=== PATIENT | female | born 1950 | race Caucasian/White ===

== ENCOUNTER → 2017-02-02 | Outpatient (CLI) | payer OTHER, MEDICARE ==
[~2017-02-02] MED LIST: AMLO-110 PO; ASPI81TA28 PO; CALC500C70 PO; CARV25TA PO; GADAVIST IV PRN; HYDR25TA5 PO; LSN20 PO; MULT-506 PO; OMEG10007 PO; POTA-327 PO; SULF800T23 PO; dilaudid INT SPINAL
--- NOTE | 2017-02-02 16:25 | DIAGNOSTIC IMAGING REPORT ---
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 Patient has history of epidural pain pump catheter. COMPARISON: CT thoracic spine 09/11/2015, 08/03/2014 and 03/23/2014. TECHNIQUE: Multiplanar multisequence MRI of the thoracic spine was obtained both with and without the use of 8.5 mL Gadavist. FINDINGS: The large [id number] teacher advisor images demonstrate no gross abnormality. Focal areas of intermediate T1 and increased T2 signal without enhancement are again seen involving the T2 and T3 vertebral bodies extending into the left posterior elements at T3, unchanged dating back to 03/23/2014 suggesting vertebral body hemangiomas with similar appearing lesions seen at T5, T6, T11 and also at C6. The bone marrow signal is otherwise within normal limits. No fracture or marrow replacing process. Multilevel endplate spurring and facet arthropathy is noted throughout the lumbar spine without high-grade central canal or foraminal narrowing identified. Broad-based posterior disc bulge is seen at L1-L2, not imaged on the axial series appears to cause mild bilateral inferior foraminal narrowing. Conus medullaris terminates at the L1 level. There is a focal circumscribed ovoid structure with low T1 and low T2 signal and avid enhancement abutting the posterior epidural space at T9-T10, nicely seen on image 8 of the sagittal postcontrast T1 series measuring 6 x 7 x 8 mm in AP, transverse and craniocaudal dimensions, previously measuring 9 x 8 x 13 mm in AP, transverse and craniocaudal dimension. No additional abnormally enhancing lesions or masses are seen. This causes mild central canal stenosis. Signal within the cord is within normal limits. Micrometallic artifact is noted in the deep subcutaneous tissues at the T11-T12 level. The pain pump catheter is not seen on these images. T2 hyperintense lesions throughout the kidneys are nonspecific on this study, however suggest cysts. There is apparent nonspecific T2 hyperintense 1.3 cm lesion of the left thyroid. Indeterminate mildly T2 hypointense round circumscribed lesions within the expected region of the right psoas musculature on the coronal T2 series are seen measuring up to 2.6 cm in craniocaudal dimension nicely seen on image 8 of the coronal T2 series. There appears to be asymmetric right psoas atrophy. These findings are not imaged on the axial images. IMPRESSION: 1. Decreased size of enhancing T2 and T1 hypointense structure abutting the posterior epidural space at T9-T10 suggesting granuloma as seen on comparison studies. This measures up to 8 mm in greatest dimension and causes mild central canal narrowing. 2. No additional abnormally enhancing foci identified. 3. No high-grade central canal or foraminal narrowing identified. 4. Partially imaged nonspecific lobulated circumscribed foci within the retroperitoneal region near the right psoas musculature noted on the coronal images only. These findings can be further evaluated with CT. Moderate right psoas atrophy incidentally noted. 5. 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 The above report was generated using voice recognition software. It may contain grammatical, syntax or spelling errors. Electronically signed by: Franco Jack M.D. 02/02/2017 4:24 PM Dictated Date/Time: 02/02/2017 2:49 PM
== END | disposition home or self-care (01) ==
LOC: C.MRIBC 11:42
PROVIDERS: ATTEND Physician Assistant Medical
DX: Z96.89 Presence of other specified functional implants (principal)

== ENCOUNTER 2018-10-11 11:53 | Inpatient (IN) ==
--- NOTE | 2018-06-29 12:28 | PAT Medication Instructions ---
Medication Instructions Date of Service June 29, 2018 Home Medications amlodipine 5 mg tablet 5 mg PO QAM aspirin 81 mg tablet,delayed 81 mg PO QPM hydrochlorothiazide 25 mg tablet 25 mg PO QAM lisinopril 20 mg tablet 20 mg PO BID multivitamin capsule 1 cap PO QAM omega-3 fatty acids 1,000 mg 1,000 mg PO QAM psyllium husk 0.4 gram capsule 0.4 gm PO QAM atorvastatin 10 mg tablet 5 mg PO QPM Dilaudid 1 dose INTRATHECAL DAILY dorzolamide-timolol (PF) 1 drp OPHTHALMIC (EYE) BID Continue as directed Dilaudid 1 dose INTRATHECAL DAILY ASK your surgeon for instructions aspirin 81 mg tablet,delayed 81 mg PO QPM STOP taking 2 weeks before surgery omega-3 fatty acids 1,000 mg 1,000 mg PO QAM DO NOT take the morning of surgery hydrochlorothiazide 25 mg tablet 25 mg PO QAM lisinopril 20 mg tablet 20 mg PO BID multivitamin capsule 1 cap PO QAM psyllium husk 0.4 gram capsule 0.4 gm PO QAM Take morning of surgery With a small sip of water, OTHERWISE NOTHING TO EAT OR DRINK AFTER MIDNIGHT: amlodipine 5 mg tablet 5 mg PO QAM dorzolamide-timolol (PF) 1 drp OPHTHALMIC (EYE) BID Take evening before surgery atorvastatin 10 mg tablet 5 mg PO QPM dorzolamide-timolol (PF) 1 drp OPHTHALMIC (EYE) BID Other Notes If you have any questions please call us at [phone] or [phone] or [phone] or [phone]
--- NOTE | 2018-06-29 13:51 | PAT Medication Instructions ---
Medication Instructions Date of Service June 29, 2018 Other Notes Home Medications amlodipine 5 mg tablet5 mg PO QAM aspirin 81 mg tablet,[id number] mg PO QPM hydrochlorothiazide 25 mg [id number] mg PO QAM lisinopril 20 mg [id number] mg PO BID multivitamin capsule1 cap PO QAM omega-3 fatty acids 1,000 mg1,000 mg PO QAM psyllium husk 0.4 gram capsule.4 gm PO QAM atorvastatin 10 mg tablet5 mg PO QPM Dilaudid1 dose INTRATHECAL DAILY dorzolamide-timolol (PF)1 drp OPHTHALMIC (EYE) BID ASK your surgeon for instructions aspirin 81 mg tablet,delayed 81 mg PO QPM Dilaudid 1 dose INTRATHECAL DAILY STOP taking 2 weeks before surgery (or as soon as possible if surgery is within 2 weeks) omega-3 fatty acids 1,000 mg 1,000 mg PO QAM DO NOT take the morning of surgery hydrochlorothiazide 25 mg tablet 25 mg PO QAM lisinopril 20 mg tablet 20 mg PO BID multivitamin capsule 1 cap PO QAM psyllium husk 0.4 gram capsule 0.4 gm PO QAM Take morning of surgery With a small sip of water, OTHERWISE NOTHING TO EAT OR DRINK AFTER MIDNIGHT: amlodipine 5 mg tablet 5 mg PO QAM dorzolamide-timolol (PF) 1 drp OPHTHALMIC (EYE) BID Take evening before surgery atorvastatin 10 mg tablet 5 mg PO QPM dorzolamide-timolol (PF) 1 drp OPHTHALMIC (EYE) BID If you have any questions please call us at [phone] or [phone] or [phone] or [phone]
--- NOTE | 2018-06-29 14:00 | Anesthesiology Consultation ---
Date of Service June 29, 2018 Assessment & Plan (1) Encounter for pre-operative examination: Plan: - Awaiting response from PCP (Dr. Robertson) regarding hypokalemia on preop labs (06/29/18 K+: 3.1). Chart Review Chart Review: Patient seen in Pre Admission Testing Teaching & Discussion Pre-Anesthesia Teaching/Discussion Notes: Instructed NPO after midnight before surgery,except medications with 15 cc of water. Medication instructions provided according to the PAT guidelines. History Surgery Operation Date: 08/09/18 13:15 Proposed Procedures p Revision / Replacement of Intrathecal Catheter and Possible Replacement of Intrathecal Pain Pump - Arturo Jorge MD, FIPP Height/Weight Height: 5 ft 5 in Weight: 86.8 kg Allergies Allergy/AdvReac Type Severity Reaction Status Date / Time cephalexin AdvReac Unknown INCREASED Verified 06/29/18 13:56 BP Medications Home Medications Medication Instructions Recorded Confirmed Last Taken amlodipine 5 mg tablet 5 mg PO QAM 02/22/18 06/29/18 Unknown aspirin 81 mg tablet,delayed 81 mg PO QPM 02/22/18 06/29/18 Unknown release hydrochlorothiazide 25 mg tablet 25 mg PO QAM 02/22/18 06/29/18 Unknown lisinopril 20 mg tablet 20 mg PO BID tab 02/22/18 06/29/18 Unknown multivitamin capsule 1 cap PO QAM 02/22/18 06/29/18 Unknown omega-3 fatty acids 1,000 mg 1,000 mg PO QAM 02/22/18 06/29/18 Unknown capsule psyllium husk 0.4 gram capsule 0.4 gm PO QAM 04/06/18 06/29/18 Unknown atorvastatin 10 mg tablet 5 mg PO QPM tab 05/16/18 06/29/18 Unknown Dilaudid 1 dose INTRATHECAL DAILY 06/23/18 06/29/18 Unknown dorzolamide-timolol (PF) 1 drp OPHTHALMIC (EYE) BID 06/23/18 06/29/18 Unknown Past Medical History Medical History Degenerative disc disease Osteoarthritis Diverticular disease Glaucoma Deep vein thrombosis (Resolved) LE DVT 40+ YEARS AGO- AC X 1 MONTH; NO ISSUES SINCE Mitral valve prolapse NO RECENT ECHO; NO MURMUR NOTED ON PAT EXAM Dyslipidemia Hypertension Chronic interstitial cystitis Lumbar post-laminectomy syndrome Presence of intrathecal pump OR MADE AWARE Obesity Past Surgical History Surgical History S/P excision of lipoma History of colonoscopy History of hysterectomy History of cholecystectomy History of lumbar surgery x5 Status post insertion of intrathecal pump + INTRATHECAL PUMP REPLACEMENT= 09/17/15= LMA#4 AT [facility] Past Anesthesia History No Hx of Anesthesia Complications and No Family Hx of Anesthesia Complications History of PONV No Motion Sickness Screening History of Motion Sickness: No Social History Smoking Status: Never smoker Do You Dip or Chew Tobacco: No Hx Alcohol Use: No Hx Substance Use: No substance use type: does not use Exercise / Class Metabolic Activity III < 4 Walking/Shop/Light housework Review of Systems Patient denies chest pain, shortness of breath, reflux, cough, wheezing, palpitations. Physical Exam Vital Signs VITALS BP 116/78 P 65 TEMP 97.8 SP02 96%RA RESP 18 Full neck and c-spine range of motion. Full TMJ range of motion. TMD 2.5 finger breaths Mallampati Score 2 Dentition: chipped molars; missing sides/molars Lungs: clear throughout to auscultation Cardiac: regular rate and rhythm, no murmurs noted Spine: normal Carotid arteries: negative bruit Extremities: no edema Testing Electrocardiogram Date: 06/29/18 NSR at 67bpm. NS STA. Laboratory Results 06/29/18 14:09 06/29/18 14:09 Urine Color Yellow 06/29/18 Unknown Urine Appearance Clear (Clear) 06/29/18 Unknown Urine pH 5.5 (4.5-7.5) 06/29/18 Unknown Ur Specific Shannon 1.015 (1.000-1.030) 06/29/18 Unknown Urine Protein Negative (Negative) 06/29/18 Unknown Urine Glucose (UA) Negative (Negative) 06/29/18 Unknown Urine Ketones Negative (Negative) 06/29/18 Unknown Urine Nitrite Negative (Negative) 06/29/18 Unknown Ur Leukocyte Esterase Negative (Negative) 06/29/18 Unknown
[2018-06-29 14:55] LABS: Basophils # (auto) 0.01 K/uL (0-0.2); Basophils % (auto) 0.2 %; Eosinophils % (auto) 1.8 %; Hematocrit (blood only) 43.4 % (37-47); Hemoglobin 14.9 g/dL (12.0-16.0); Lymphocytes % (auto) 36.6 %; Mean Corpuscular Hgb Conc 34.3 g/dL (32-36); Mean Corpuscular Volume 94.6 fL (80-100); Monocytes # (auto) 0.46 K/uL (0.11-0.59); Monocytes % (auto) 8.4 %; Platelet Count 185 K/uL (130-400); RDW Coefficient of Variation 13.3 % (11.5-14.5); RDW Standard Deviation 45.8 fL (36.4-46.3); Red Blood Count 4.59 M/uL (4.2-5.4); White Blood Count 5.47 K/uL (4.8-10.8)
[2018-06-29 15:16] LABS: BUN Creatinine Ratio 21.1 (10-20); Calcium 9.3 mg/dl (8.5-10.1); Creatinine Clr Calc Pharmacy 71.3 ml/min; Est GFR (African American) 85.9; Est GFR (Non-African American) 74.1; Potassium 3.1 mmol/L (3.5-5.1)
[2018-06-29 15:17] LABS: Appearance Urine Clear (Clear); Bilirubin Urine Negative (Negative); Blood Urine Negative (Negative); Color Urine Yellow; Glucose Urine UA Negative (Negative); Ketones Urine Negative (Negative); Leukocyte Esterase Urine Negative (Negative); Nitrite Urine Negative (Negative); Protein Urine Negative (Negative); Specific Gravity Urine 1.015 (1.000-1.030); Urobilinogen Urine Negative (Negative); pH Urine 5.5 (4.5-7.5)
--- NOTE | 2018-08-23 13:05 | History & Physical Report ---
Date of Service August 23, 2018 Assessment & Plan (1) Presence of intrathecal pump: As the patient has been experiencing increased pain over the last several months in the hips, thoracic MRI was ordered to evaluate for potential growth of previous catheter tip granuloma. Granuloma was found to have resolved. A lumbar spine xray was ordered and the catheter tubing was found to be disconnected. The patient has been experiencing increased pain for the last several months and a disconnection of the catheter tubing would account for this. It is recommended that the patient pursue a revision of the intrathecal catheter. The LESIA of the pump is 46 months so we will not plan for replacement of the pump but will if warranted. Risks and benefits were reviewed with the patient in great detail. Patient would like to proceed with the procedure. She is scheduled for catheter revision and possible pump replacement on 09/06/18. (2) Lumbar post-laminectomy syndrome: History of Present Illness Chief Complaint: Chronic intractable low back pain secondary to post-laminectomy syndrome Primary Care Provider: Eleuterio Robertson Mrs. Velasquez is a 67 year old white female that is well known to the [facility] with a history of chronic lumbago secondary to lumbar post- laminectomy syndrome which has required the implantation of an intrathecal pump and catheter delivery system. She has received multiple lumbar surgeries since 1976. She is currently receiving intrathecal Dilaudid and Clonidine which has been adequately controlling her chronic back pain for many years. She was found to have a granuloma which did gradually resolve. Over the last several months she has been experiencing increasing hip pain that is causing moderate limitation into her daily activities. Pain is rated 1/10 at its best and 5/10 at its worst. She denies any saddle anesthesia, bowel/bladder incontinence, leg weakness, or falls. Allergies Allergy/AdvReac Type Severity Reaction Status Date / Time cephalexin AdvReac Unknown INCREASED Verified 08/10/18 10:57 BP Home Medications Home Medications Medication Instructions Recorded Confirmed Type amlodipine 5 mg tablet 5 mg PO QAM 02/22/18 06/29/18 History aspirin 81 mg tablet,delayed 81 mg PO QPM 02/22/18 06/29/18 History release hydrochlorothiazide 25 mg tablet 25 mg PO QAM 02/22/18 06/29/18 History lisinopril 20 mg tablet 20 mg PO BID tab 02/22/18 06/29/18 History multivitamin capsule 1 cap PO QAM 02/22/18 06/29/18 History omega-3 fatty acids 1,000 mg 1,000 mg PO QAM 02/22/18 06/29/18 History capsule psyllium husk 0.4 gram capsule 0.4 gm PO QAM 04/06/18 06/29/18 History atorvastatin 10 mg tablet 5 mg PO QPM tab 05/16/18 06/29/18 History Dilaudid 1 dose INTRATHECAL DAILY 06/23/18 06/29/18 History dorzolamide-timolol (PF) 1 drp OPHTHALMIC (EYE) BID 06/23/18 06/29/18 History potassium chloride ER 10 mEq 10 meq PO DAILY 08/10/18 08/10/18 History tablet,extended release potassium chloride 20 meq PO DAILY 08/16/18 08/16/18 History Past Med/Surg History Medical History Obesity (Chronic) Degenerative disc disease (Chronic) Osteoarthritis (Chronic) Diverticular disease (Chronic) Glaucoma (Chronic) Deep vein thrombosis (Chronic) LE DVT 40+ YEARS AGO- AC X 1 MONTH; NO ISSUES SINCE Mitral valve prolapse (Chronic) NO RECENT ECHO; NO MURMUR NOTED ON PAT EXAM ON 06/29/18 Dyslipidemia (Chronic) Hypertension (Chronic) Chronic interstitial cystitis (Chronic) Lumbar post-laminectomy syndrome (Chronic) Presence of intrathecal pump (Chronic) OR MADE AWARE Surgical History Status post insertion of intrathecal pump (Chronic) + INTRATHECAL PUMP REPLACEMENT= 09/17/15= LMA#4 AT [facility] S/P excision of lipoma (Resolved) History of colonoscopy (Chronic) History of hysterectomy (Chronic) History of cholecystectomy (Chronic) History of lumbar surgery (Chronic) x5 Social History Preferred Language: Swiss Communication Ability: Effective Visual Impairment: Limited Hearing Ability: Normal Beliefs That Will Affect Care: None marital status: marital status details: Has 2 adult children Current Living Situation: Spouse current occupational status: disabled current occupation: Previously employed by [employer] Other Information That Helps Us Care for You: No Feels Safe at Home: Yes Smoking Status: Never smoker Hx Alcohol Use: No Hx Substance Use: No Review of Systems Constitutional: no fever, no chills, no sweats, no body aches and no weakness Eyes: no eye pain and no photophobia Ear, Nose, Mouth, Throat: no ear pain, no nasal congestion, no facial pain, no sinus pain/pressure, no mouth lesions, no dental abscess, no sore throat and no dysphagia Respiratory: no cough, no chest congestion and no wheezing Cardiovascular: no chest pain, no radiating jaw, neck or arm pain, no palpitations and no lightheadedness Gastrointestinal: no abdominal pain, no nausea, no vomiting, no constipation and no diarrhea/loose stools Genitourinary (Female): no dysuria, no urinary frequency and no urinary incontinence Integumentary: no rash, no lesions, no skin ulcer and no sores Neurologic: no localized weakness, no generalized weakness, no loss of sensation, no lack of coordination, no confusion and no memory loss Psychiatric: no behavioral changes, no confusion and no hallucinations Physical Exam Vital Signs (Past 24 Hours): Per admission Physical Exam: GENERAL: Well nourished; well appearing; in no acute distress. Cognition intact and speech is appropriate. HEAD: Normocephalic; atraumatic. EYES: Pupils are round, equal, and reactive to light; EOM intact. ENT: No external ear discharge or lesions. No rhinorrhea or epistaxis. No mucosal lesions. NECK: Full ROM; trachea is midline; no TTP; no cervical lymphadenopathy. CARDIAC: No murmurs, rubs, or gallops noted. RRR. PULM: Clear to auscultation. No wheezes, rales, or rhonchi. CHEST: Regular chest respiration and excursion. ABDOMEN: Active bowel sounds throughout; non-tender to palpation. Pump is located in the RLQ. EXTREMITIES: Full ROM and 5/5 strength of bilateral lower extremities. No TTP. Distal sensation and pulses intact bilaterally. BACK: Complete loss of lumbar lordosis. Well healed surgical incision of the lumbar spine. There is non-focal tenderness to the lumbosacral region. Decreased ROM in all planes. No SI joint tenderness. NEURO: CN II-XII grossly intact with no focal deficits noted. AAO x 3. Normal gait. SKIN: No lesions, erythema, or rashes noted. Results & Data Diagnostic Findings XR lumbar spine min 4V RTN CLINICAL HISTORY: lumbago COMPARISON STUDY: 03/19/2014 FINDINGS: There is intrathecal catheter which appears to be disconnected.. There are surgical clips in the right pelvis and right paraspinal region. There are postsurgical changes of a lower lumbar spinal fusion. There are no acute fractures. There are no subluxations. No destructive lesions are evident. There are scattered nonspecific air-fluid levels with left abdominal small bowel loops at the upper limits of normal in diameter. IMPRESSION: 1. The patient's intrathecal catheter appears disconnected with retraction of the proximal tubing 2. Postsurgical changes in the lower lumbar spine 3. No acute fractures 4. Scattered abdominal air-fluid levels. Electronically signed by: Vincent Spence M.D. 04/06/2018 2:34 PM
--- NOTE | 2018-10-10 11:38 | History & Physical Report ---
Date of Service October 10, 2018 Assessment & Plan (1) Presence of intrathecal pump: As the patient has been experiencing increased pain over the last several months in the hips, thoracic MRI was ordered to evaluate for potential growth of previous catheter tip granuloma. Granuloma has resolved. A lumbar spine xray was ordered and the catheter tubing was found to be disconnected. The patient has been experiencing increased pain for the last several months and a disconnection of the catheter tubing would account for this. It is recommended that the patient pursue a revision of the intrathecal catheter. The LESIA of the pump is 46 months so we will not plan for replacement of the pump but will if warranted. Risks and benefits were reviewed with the patient in great detail. Patient would like to proceed with the procedure. She is scheduled for catheter revision and possible pump replacement on 10/11/18. (2) Lumbar post-laminectomy syndrome: History of Present Illness Primary Care Provider: Eleuterio Robertson Mrs. Velasquez is a 67 year old white female that is well known to the [facility] with a history of chronic lumbago secondary to lumbar post- laminectomy syndrome which has required the implantation of an intrathecal pump and catheter delivery system. She has received multiple lumbar surgeries since 1976. She is currently receiving intrathecal Dilaudid and Clonidine which has been adequately controlling her chronic back pain for many years. She was found to have a granuloma which did gradually resolve. Over the last several months she has been experiencing increasing hip pain that is causing moderate limitation into her daily activities. Pain is rated 1/10 at its best and 5/10 at its worst. She denies any saddle anesthesia, bowel/bladder incontinence, leg weakness, or falls. Allergies Allergy/AdvReac Type Severity Reaction Status Date / Time cephalexin AdvReac Unknown INCREASED Verified 10/06/18 11:33 BP Home Medications Home Medications Medication Instructions Recorded Confirmed Type amlodipine 5 mg tablet 5 mg PO QAM 02/22/18 10/06/18 History aspirin 81 mg tablet,delayed 81 mg PO QPM 02/22/18 10/06/18 History release hydrochlorothiazide 25 mg tablet 25 mg PO QAM 02/22/18 10/06/18 History lisinopril 20 mg tablet 20 mg PO BID tab 02/22/18 10/06/18 History multivitamin capsule 1 cap PO QAM 02/22/18 10/06/18 History omega-3 fatty acids 1,000 mg 1,000 mg PO QAM 02/22/18 10/06/18 History capsule psyllium husk 0.4 gram capsule 0.4 gm PO QAM 04/06/18 10/06/18 History atorvastatin 10 mg tablet 5 mg PO QPM tab 05/16/18 10/06/18 History Dilaudid 1 dose INTRATHECAL DAILY 06/23/18 10/06/18 History dorzolamide-timolol (PF) 1 drp OPHTHALMIC (EYE) BID 06/23/18 10/06/18 History potassium chloride 20 meq PO DAILY 08/16/18 10/06/18 History ascorbic acid (vitamin C) [Vitamin 500 mg PO DAILY 10/06/18 10/06/18 History C] Past Med/Surg History Medical History Obesity (Chronic) Degenerative disc disease (Chronic) Osteoarthritis (Chronic) Diverticular disease (Chronic) Glaucoma (Chronic) Deep vein thrombosis (Chronic) LE DVT 40+ YEARS AGO- AC X 1 MONTH; NO ISSUES SINCE Mitral valve prolapse (Chronic) NO RECENT ECHO; NO MURMUR NOTED ON PAT EXAM ON 06/29/18 Dyslipidemia (Chronic) Hypertension (Chronic) Chronic interstitial cystitis (Chronic) Lumbar post-laminectomy syndrome (Chronic) Presence of intrathecal pump (Chronic) OR MADE AWARE Fusion of spine X1 LUMBAR Surgical History Status post insertion of intrathecal pump (Chronic) + INTRATHECAL PUMP REPLACEMENT= 09/17/15= LMA#4 AT [facility] S/P excision of lipoma (Resolved) History of colonoscopy (Chronic) History of hysterectomy (Chronic) IVONNE History of cholecystectomy (Chronic) History of lumbar surgery (Chronic) MULTIPLE WITH REPAIR OF NERVE DAMAGE History of laminectomy X2 S/P BSO (bilateral salpingo-oophorectomy) S/P exploratory laparotomy BENIGN TUMOR IN THE ABDOMEN Social History Preferred Language: Estonian Communication Ability: Effective Visual Impairment: Limited Hearing Ability: Normal Beliefs That Will Affect Care: None marital status: marital status details: Has 2 adult children Current Living Situation: Spouse current occupational status: disabled current occupation: Previously employed by [employer] Feels Safe at Home: Yes Smoking Status: Never smoker Second Hand Exposure: No Hx Alcohol Use: No Hx Substance Use: No Review of Systems Constitutional: no fever, no chills, no sweats, no body aches and no weakness Eyes: no eye pain and no photophobia Ear, Nose, Mouth, Throat: no ear pain, no nasal congestion, no facial pain, no sinus pain/pressure, no mouth lesions, no dental abscess, no sore throat and no dysphagia Respiratory: no cough, no chest congestion and no wheezing Cardiovascular: no chest pain, no radiating jaw, neck or arm pain, no palpitations and no lightheadedness Gastrointestinal: no abdominal pain, no nausea, no vomiting, no constipation and no diarrhea/loose stools Genitourinary: no dysuria, no urinary frequency and no urinary incontinence Integumentary: no rash, no lesions, no skin ulcer and no sores Neurologic: no localized weakness, no generalized weakness, no loss of sensation, no lack of coordination, no confusion and no memory loss Psychiatric: no behavioral changes, no confusion and no hallucinations Physical Exam Physical Exam: GENERAL: Well nourished; well appearing; in no acute distress. Cognition intact and speech is appropriate. HEAD: Normocephalic; atraumatic. EYES: Pupils are round, equal, and reactive to light; EOM intact. ENT: No external ear discharge or lesions. No rhinorrhea or epistaxis. No mucosal lesions. NECK: Full ROM; trachea is midline; no TTP; no cervical lymphadenopathy. CARDIAC: No murmurs, rubs, or gallops noted. RRR. PULM: Clear to auscultation. No wheezes, rales, or rhonchi. CHEST: Regular chest respiration and excursion. ABDOMEN: Active bowel sounds throughout; non-tender to palpation. Pump is located in the RLQ. EXTREMITIES: Full ROM and 5/5 strength of bilateral lower extremities. No TTP. Distal sensation and pulses intact bilaterally. BACK: Complete loss of lumbar lordosis. Well healed surgical incision of the lumbar spine. There is non-focal tenderness to the lumbosacral region. Decreased ROM in all planes. No SI joint tenderness. NEURO: CN II-XII grossly intact with no focal deficits noted. AAO x 3. Normal gait. SKIN: No lesions, erythema, or rashes noted.
[~2018-10-11 11:53] MED LIST changes: -AMLO-110 PO; -ASPI81TA28 PO; -CALC500C70 PO; -CARV25TA PO; -GADAVIST IV PRN; -HYDR25TA5 PO; +LR 15ML/HR IV SCH; -LSN20 PO; -MULT-506 PO; -OMEG10007 PO; -POTA-327 PO; -SULF800T23 PO; +VANCOMYCIN HCL 1,000 MG in SODIUM CHLORIDE 0.9% 250 ML IV SCH; +VANCOMYCIN HCL 1,000 MG/270 ML BAG IV SCH; -dilaudid INT SPINAL
[2018-10-11] MEDS ORDERED: fentaNYL citrate 100 MCG/2 ML VIAL ONE ×3 (12:29→15:23)
[2018-10-11] MEDS ORDERED: MIDAZOLAM HCL 1 MG/ML 2ML VIAL ONE ×2 (12:29→13:02)
[2018-10-11] MEDS ORDERED: LIDOCAINE HCL 2% 2 ML VIAL/AMP(20MG/ML) INFIL ONE (12:30)
[2018-10-11] MEDS ORDERED: PROPOFOL IV EMULSION 10 MG/ML 20 ML VIAL IV ONE ×2 (12:30→15:28)
[2018-10-11] MEDS ORDERED: POVIDONE-IODINE OP SOLN 30 ML BTL ONE (12:35)
[2018-10-11] MEDS ORDERED: IOPAMIDOL INJ 61% 15 ML VIAL ONE (12:35)
[2018-10-11] MEDS ORDERED: LIDOCAINE/EPINE 2% 1:100,000 20ML ONE ×2 (12:35→14:46)
[2018-10-11 13:05] LABS: BUN Creatinine Ratio 24.7 (10-20); Creatinine Clr Calc Pharmacy 73.8 ml/min; Est GFR (African American) 89.9; Est GFR (Non-African American) 77.6; Potassium 3.5 mmol/L (3.5-5.1)
[2018-10-11] MEDS ORDERED: CLINDAMYCIN 600 MG/54 ML D5W IV ONE (13:12)
--- NOTE | 2018-10-11 13:12 | History & Physical Bridge Note ---
Date of Service October 11, 2018 History & Physical Bridge Note I have examined the patient, reviewed the History & Physical and in the interval since the performance of the History & Physical I have noted the following changes of clinical significance: no changes noted Patient accepts risks of infection, bleeding, damage to surrounding structures. She understands that she may require replacement of intrathecal pump vs simple repair of catheter or complete new catheter replacement. All questions answered and consent was signed.
[2018-10-11] MEDS ORDERED: CLINDAMYCIN 600 MG in DEXTROSE 5% 50 ML IV SCH (13:15)
[2018-10-11] MEDS ORDERED: ONDANSETRON INJ 2 MG/ML 2 ML VIAL IV PRN (14:51)
[2018-10-11] MEDS ORDERED: ATROPINE SULFATE 0.1 MG/ML 10ML SYR IV PRN (14:51)
[2018-10-11] MEDS ORDERED: PROMETHAZINE HCL 12.5 MG in SODIUM CHLORIDE 0.9% 50 ML IV PRN (14:51)
[2018-10-11] MEDS ORDERED: PHENYLEPHRINE 100MCG/ML 5ML SYR IV PRN (14:51)
[2018-10-11] MEDS ORDERED: ePHEDrine sulfate 50 MG/ML AMP IV PRN (14:51)
[2018-10-11] MEDS ORDERED: MAGNESIUM SULFATE / D5W 1 GM/100 ML BAG IV ONE (15:15)
[2018-10-11] MEDS ORDERED: ROCURONIUM BROMIDE 10 MG/ML 5 ML VIAL ONE (15:28)
[2018-10-11] MEDS ORDERED: GLYCOPYRROLATE 0.2 MG/ML VIAL ONE (15:28)
[2018-10-11] MEDS ORDERED: DEXAMETHASONE SOD INJ 4 MG/ML VIAL ONE (15:28)
[2018-10-11] MEDS ORDERED: ONDANSETRON INJ 2 MG/ML 2 ML VIAL ONE (15:28)
[2018-10-11] MEDS ORDERED: NEOSTIGMINE METHYLSULFATE 5 MG/5 ML SYR ONE (15:28)
--- NOTE | 2018-10-11 16:14 | Operative Report ---
Post Operative Report Pre & Post Diagnosis Operation Date: 10/11/18 13:15 Pre-Op Diagnosis: Lumbar Post Laminectomy Syndrome; Fractured Intrathecal catheter Post-Op Diagnosis: Lumbar Post Laminectomy Syndrome; Fractured Intrathecal catheter Procedure Operation Date: 10/11/18 13:15 Actual Procedures Revision/Replacement of Intrathecal Catheter, Catheter Access Port Interrogation and Analysis and reprogramming of intrathecal pump- Arturo Jorge MD, [employer] Surgeon Arturo Jorge MD, [employer] Fisheries Officer Dr. Jernigan Estimated Blood Loss 15 Findings Consistent with Post-Op Diagnosis Specimens Explanted intrathecal catheter Drains None Complications none Disposition Disposition: Recovery Room Description of Procedure INTRATHECAL CATHETER REVISION OPERATIVE REPORT PREOPERATIVE DIAGNOSIS: Nonfunctioning and migrated intrathecal catheter. POSTOPERATIVE DIAGNOSIS: Same. PROCEDURE: 1. Remove fractured intrathecal catheter. 2. Insertion of new catheter. 3. Revision of pump pocket. 4. Intraoperative refill and postoperative interrogation and reprogramming of intrathecal drug delivery system pump. INDICATIONS: Fractured intrathecal catheter COMPLICATIONS: None ANESTHESIA: General. DESCRIPTION OF PROCEDURE: The patient had an existing intrathecal pump with the catheter that had migrated in the epidural space. Patient was not achieving the efficacy from the intrathecal dose of the hydromorphone. Evaluation limited the catheter to be not in the thecal space. Prior to starting, the Patients diagnosis and the procedure were reviewed with the patient in detail. Possible risks and complications including infection, bleeding, damage to surrounding structures and increased pain were discussed. Alternative therapies were also reviewed. Patients questions were answered and they agreed to proceed. Informed consent was obtained. Allergies and medication list was reviewed. Biplanar fluoroscopy was used to assist in placement of the needle as well as to evaluate the final needle and catheter positions. The patient was brought to the operating room and general anesthesia was induced by members of the department. Patient was then placed in left lateral decubitus position. Immediately prior to starting the procedure, a ``time out was conducted with the staff where the patient was identified, proposed procedure was verified, consent was reviewed and the proper site for the planned procedure was identified. Preoperative antibiotic consisting of clindamycin 900 mg for prophylaxis was given given through the IV. On examination, no signs of skin breakdown or infection were noted at the injection site. The site was cleansed with DuraPrep followed by Betadine. Sterile drapes were applied in the usual fashion. Incision was made at the previous catheter insertion site. The existing catheter was located and anchor was disconnected and removed. Pump pocket site was open and the current pump in the remaining portion of the catheter were removed. Next, using biplanar fluoroscopy an 16-gauge Touhy needle was used to gain access to the intrathecal sac at L2/L3 interspace. Catheter was passed and after several attempts the catheter tip was placed at T8 position. CSF flow was noted. Clear free cerebral spinal fluid flow was noted without any blood. Stylet was removed. The intrathecal catheter was secured to the dorso-lumbar fascia with 2 purse string 0-0 silk ties. Entire catheter was used without any excess being removed. The anchoring device was used to anchor the catheter and was secured to the dorsal lumbar fascia with 0 silk sutures. Free CSF flow from the intrathecal catheter after anchoring of the catheter to the fascia. Using a tunneling device, the catheter was brought to the right flank and subsequently lower quadrant of the abdomen with using 2 technique. Wound was then irrigated with aqueous iodophor solution. Hemostasis was achieved. Deep layer was closed using 0 antibiotic- coated Strratfix suture and running 3-0 V lock suture for subcuticular layer. Both wounds were closed in same fashion. Prineo to the skin. 4 x 4 gauze and pressure dressing was applied to both sites. Abdominal binder was placed. Pump was then reprogrammed. No complications were noted throughout the procedure. The patient tolerated the procedure and general anesthesia without obvious complications.. Patient was allowed to emerge from anesthesia at the end of the procedure and transferred back to the stretcher. Patient was transported to the recovery room in stable condition. The patient will follow up with our clinic within 7 days for a wound check and then plan to have the destiney removed at day 14. Level of catheter: [] Catheter trimmed to: [] cm Medication placed in pump: [] [] mg/ml to run at [] mg/day I attest to the content of the Intraoperative Record and any orders documented therein. Any exceptions are noted below.
[2018-10-11] MEDS ORDERED: MAGNESIUM CITRATE 296 ML/BTL PO PRN (16:21)
[2018-10-11] MEDS ORDERED: NALOXONE HCL 0.4 MG/1 ML VIAL/CARP IV PRN (16:21)
[2018-10-11] MEDS ORDERED: NO NARCOTICS OR SEDATIVES SCH (16:30)
[2018-10-11] MEDS: fentaNYL citrate 100 MCG/2 ML VIAL IV PRN ×4 (16:40→16:55)
[2018-10-11] MEDS: HYDROmorphone INJ 1 MG/ML SYRINGE IV PRN ×6 (17:05→17:40)
--- NOTE | 2018-10-11 18:00 | Anesthesiology Progress Note ---
Date of Service October 11, 2018 Anesthesia Post Procedure Vital Signs Vital Signs: Temp Pulse Pulse Resp BP Pulse Ox 10/11/18 17:45 36.8 C 60 17 146/78 H 98 10/11/18 17:35 60 18 155/76 H 99 10/11/18 17:25 66 13 167/75 H 100 10/11/18 17:15 53 L 16 152/79 H 99 10/11/18 17:05 61 20 147/84 H 99 10/11/18 16:55 62 20 123/89 99 10/11/18 16:45 62 18 131/89 100 10/11/18 16:35 66 16 170/79 H 100 10/11/18 16:27 36.2 C L 69 16 137/76 98 10/11/18 12:36 36.7 C 59 L 18 159/88 H 100 Pain Intensity Medial Back: Pain Intensity: 2 Bilateral Leg: Pain Intensity: 5 Transfer of Care Handoff Completed per policy Notes Mental Status: alert / awake / arousable Patient Amnestic to Procedure: Yes Nausea / Vomiting: adequately controlled Pain: adequately controlled Airway Patency, RR, SpO2: stable & adequate BP & HR: stable & adequate Hydration State: stable & adequate Anesthetic Complications: no major complications apparent and Pt Satisfied with anesthetic care
[2018-10-11] MEDS: ONDANSETRON INJ 2 MG/ML 2 ML VIAL IV PRN (20:11)
--- NOTE | 2018-10-11 20:46 | Anesthesiology Progress Note ---
Date of Service October 11, 2018 I was called about this patient who was complaining of pain from behind her right knee radiating to her right foot, mostly the dorsum of her toes. The pain is constant and is exacerbated by movement of her foot. She also complains of pain in her left foot primarily the plantar surface, non-radiating. Both feet were sensitive to pressure and sharp touch. The strength of dorsiflexion and plantar flexion was 5/5 bilaterally. DTRs,3+ left knee and 0 right knee but I do not think she was relaxing her right leg. I discussed this with Dr. Jorge who asked that I write orders for neurontin 300 mg P.O. TID and allow her to have her hydrocodone which was already ordered. Assessment & Plan (1) Encounter for pre-operative examination: Physical Exam Vital Signs: Last Vital Signs Temp 36.8 C 10/11/18 18:25 Pulse 84 10/11/18 20:22 Resp 20 10/11/18 20:22 BP 134/77 10/11/18 20:22 Pulse Ox 96 10/11/18 20:22 Results & Data Medications Administered Lactated Ringer's (Lr) 1,000 mls @ 15 mls/hr IV .Q24H [facility] Stop: 10/12/18 05:59 Last Infusion: 10/11/18 18:29 Dose: 0 mls/hr Documented by: [id number] Admin: 10/11/18 12:58 Dose: 15 mls/hr Documented by: [id number] Ondansetron HCl (Zofran) 4 mg IV Q4H PRN PRN Reason: Nausea And Vomiting Stop: 11/10/18 16:20 Last Admin: 10/11/18 20:11 Dose: 4 mg Documented by: [id number]
[2018-10-11] MEDS: HYDROCODONE/ACETAMOPHEN 5/325MG TAB PO PRN (20:55)
[2018-10-11] MEDS ORDERED: ATORVASTATIN 10 MG TAB PO SCH (21:00)
[2018-10-11] MEDS ORDERED: ASPIRIN 81 MG ECTAB PO SCH (21:00)
[2018-10-11] MEDS: GABAPENTIN 300 MG CAP PO SCH (21:18)
[2018-10-11] MEDS: DOCUSATE SODIUM 100 MG CAP PO SCH (21:22)
[2018-10-11] MEDS: LISINOPRIL 20 MG TAB PO SCH (21:22)
[2018-10-12] MEDS: HYDROCODONE/ACETAMOPHEN 5/325MG TAB PO PRN (01:24)
[2018-10-12] MEDS: ONDANSETRON INJ 2 MG/ML 2 ML VIAL IV PRN (06:06)
--- NOTE | 2018-10-12 08:17 | Anesthesiology Progress Note ---
Date of Service October 12, 2018 Anesthesia Post Procedure Vital Signs Vital Signs: Temp Pulse Pulse Pulse Resp BP Pulse Ox 10/12/18 08:00 70 10/12/18 03:11 36.5 C 75 18 116/72 97 10/12/18 01:27 81 16 133/71 100 10/11/18 23:46 57 L 10/11/18 23:29 36.8 C 66 17 131/82 96 10/11/18 22:50 66 18 125/75 98 10/11/18 21:25 64 17 131/82 96 10/11/18 20:22 84 20 134/77 96 10/11/18 19:23 65 16 128/78 96 10/11/18 18:25 36.8 C 69 18 150/83 H 92 10/11/18 18:05 59 L 17 145/71 H 94 10/11/18 17:55 58 L 17 133/69 92 10/11/18 17:45 36.8 C 60 17 146/78 H 98 10/11/18 17:35 60 18 155/76 H 99 10/11/18 17:25 66 13 167/75 H 100 10/11/18 17:15 53 L 16 152/79 H 99 10/11/18 17:05 61 20 147/84 H 99 10/11/18 16:55 62 20 123/89 99 10/11/18 16:45 62 18 131/89 100 10/11/18 16:35 66 16 170/79 H 100 10/11/18 16:27 36.2 C L 69 16 137/76 98 10/11/18 12:36 36.7 C 59 L 18 159/88 H 100 Pain Intensity Medial Back: Pain Intensity: 5 Bilateral Leg: Pain Intensity: 5 Notes Mental Status: alert / awake / arousable and participated in evaluation Patient Amnestic to Procedure: Yes Nausea / Vomiting: adequately controlled Pain: adequately controlled and improving with treatment Airway Patency, RR, SpO2: stable & adequate BP & HR: stable & adequate Hydration State: stable & adequate Anesthetic Complications: no major complications apparent
[2018-10-12] MEDS: MULTIVITAMIN TAB PO SCH ×2 (08:28→08:45)
[2018-10-12] MEDS: hydroCHLOROthiazide 25 MG TAB PO SCH ×2 (08:28→08:45)
[2018-10-12] MEDS: LISINOPRIL 20 MG TAB PO SCH ×2 (08:28→08:46)
[2018-10-12] MEDS: POTASSIUM CHLORIDE 20 MEQ TABCR PO SCH ×2 (08:28→08:45)
[2018-10-12] MEDS: AMLODIPINE BESYLATE 5 MG TAB PO SCH ×2 (08:28→08:45)
[2018-10-12] MEDS: DOCUSATE SODIUM 100 MG CAP PO SCH ×2 (08:28→08:44)
[2018-10-12] MEDS: ASCORBIC ACID 500 MG TAB PO SCH ×2 (08:29→08:45)
[2018-10-12] MEDS: GABAPENTIN 300 MG CAP PO SCH ×2 (08:29→08:45)
[2018-10-12] MEDS: OMEGA-3 (PURIFIED FISH OIL) 1 GM CAP PO SCH ×2 (08:29→08:45)
[2018-10-12] MEDS ORDERED: DILAUDID IT SCH (09:00)
[2018-10-12] MEDS ORDERED: PSYLLIUM 58.6% POWDER PACKET PO SCH (09:00)
[2018-10-12] MEDS ORDERED: AMLODIPINE BESYLATE 5 MG TAB PO ONE (09:21)
[2018-10-12] MEDS ORDERED: hydroCHLOROthiazide 25 MG TAB PO STA (09:22)
[2018-10-12] MEDS ORDERED: LISINOPRIL 20 MG TAB PO STA (09:23)
--- NOTE | 2018-10-12 10:09 | Pain Management Progress Note ---
Date of Service October 12, 2018 Assessment & Plan (1) Status post insertion of intrathecal pump: * Status post removal of fractured catheter and reinsertion of intrathecal catheter and revision of pump. Postop day #1. * Neuropathic pain in the right lower extremity improving. * Patient be discharged home today with additional prescription for gabapentin 3 m p.o. 3 times daily and hydromorphone 1 mg p.o. every 6 hours as needed postoperative pain. [place] checked and no issues identified. * Follow-up with wound check in 1 week and [facility] scheduled. Present on Admission?: Yes Subjective She reports she was experiencing right foot pain, weakness dorsiflexion and dysesthesia yesterday after her intrathecal catheter replacement surgery. She was started on gabapentin and was given hydrocodone last night. This morning she reports the pain is improved significantly and that weakness is improved almost to the point of completely resolving this morning. She has been able to get out of bed and sit on the commode with minimal pain. She also is experiencing nausea and vomiting related to hydrocodone. Denies any side effects to the gabapentin. Denies any problems at the incision sites. She does not report any bowel or bladder incontinence, any progressive changes in neurological status or any other new complaints this morning. Physical Exam Physical Exam: She is awake, alert and oriented. Vital signs as noted. She is afebrile. Lungs are clear to auscultation. Inspection of the incision sites in the right lower quadrant and the lumbar spine demonstrates no fresh bleeding or drainage. Wounds are intact. No calf tenderness is noted. Neurological exam demonstrates full range of motion of the lower extremities without any obvious weakness including dorsiflexion of her right foot. Sensation is intact and symmetrical bilaterally without any deficits.
--- NOTE | 2018-11-02 09:41 | Discharge Summary ---
Date of Service 10/12/18 Admission HPI Per Admitting Provider Mrs. Velasquez is a 67 year old white female that is well known to the [facility] with a history of chronic lumbago secondary to lumbar post- laminectomy syndrome which has required the implantation of an intrathecal pump and catheter delivery system. She has received multiple lumbar surgeries since 1976. She is currently receiving intrathecal Dilaudid and Clonidine which has been adequately controlling her chronic back pain for many years. She was found to have a granuloma which did gradually resolve. Over the last several months she has been experiencing increasing hip pain that is causing moderate li mitation into her daily activities. Pain is rated 1/10 at its best and 5/10 at its worst. She denies any saddle anesthesia, bowel/bladder incontinence, leg weakness, or falls. Discharge Data Procedures Performed Operation Date: 10/11/18 13:15 Actual Procedures p Revision/Replacement of Intrathecal Catheter, Catheter Access Port Interrogation and Analysis(Not Applicable) - Arturo Jorge MD, [facility] Hospital Course (1) Status post insertion of intrathecal pump: * Status post removal of fractured catheter and reinsertion of intrathecal catheter and revision of pump. Postop day #1. * Neuropathic pain in the right lower extremity improving. * Patient be discharged home today with additional prescription for gabapentin 3 m p.o. 3 times daily and hydromorphone 1 mg p.o. every 6 hours as needed postoperative pain. [place] checked and no issues identified. * Follow-up with wound check in 1 week and [facility] scheduled. Discharge Instructions 1. Change dressings daily. Apply sterile, dry gauze and the wound site and apply tape over the dressing. 2. No showers for 3 days. May use washcloth. Can take shower after 3 days but do not route the towel over the sensation to dry. Generally dab the towel over the incision to dry. 3. Call [facility] pain clinic ([phone]) if he experienced any fevers, chills, drainage or signs of infection at the incision site. After hours, go to the emergency room. 4. Wear abdominal binder. 5. Do not lift more than 5 pounds or perform any repetitive bending, reaching overhead or twisting.
== END 2018-10-12 13:32 | disposition home or self-care (01) | DRG 30 ==
LOC: ASU 11:53 → 2S 18:23

== ENCOUNTER 2019-07-05 12:45 | Observation (INO) ==
--- NOTE | 2019-07-05 12:28 | History & Physical Report ---
Date of Service July 05, 2019 Assessment & Plan (1) Wound dehiscence: Intrathecal pump has pocket has dehisced. The superior aspect of the intrathecal pump and catheter delivery system is out of the skin. Patient will be taken to the operating room today for intrathecal pump and catheter delivery system explantation. Patient will receive a wound vac at the pump site to aid in healing. Surgical procedure has been explained to the patient and she is understanding. She will go straight [facility] for preadmission testing and admission. History of Present Illness Primary Care Provider: Eleuterio Robertson Mrs. Velasquez is a 68 year old white female that has been well known to the [facility] with a history of chronic lumbago secondary to lumbar postlaminectomy syndrome that has required the implantation of an intrathecal pump and catheter delivery system. She was found to have an intrathecal catheter fracture which was replaced on 10/11/2018. With a few dosage changes, she has been reporting adequate relief of pain. Pain is rated 3/10 at its best and 5/10 at its worst. At the last office visit on 04/05/19 there was some skin irritation and thinning along the superior aspect of the pump. She was advised to wear abdominal binder and not to wear jeans along the superior aspect of the pump. She has been wearing the abdominal binder. About 3 weeks ago she had started to notice yellow/clear drainage at the site. Patient has been applying Neosporin and a bandage daily. Allergies Allergy/AdvReac Type Severity Reaction Status Date / Time gabapentin Allergy Intermediate chest pain Verified 07/05/19 11:20 cephalexin AdvReac Unknown INCREASED Verified 04/05/19 10:53 BP Home Medications Home Medications Medication Instructions Recorded Confirmed Type amlodipine 5 mg tablet 5 mg PO QAM 02/22/18 04/05/19 History aspirin 81 mg tablet,delayed 81 mg PO QPM 02/22/18 04/05/19 History release hydrochlorothiazide 25 mg tablet 25 mg PO QAM 02/22/18 04/05/19 History lisinopril 20 mg tablet 20 mg PO BID tab 02/22/18 04/05/19 History multivitamin 1 cap PO QAM 02/22/18 04/05/19 History omega-3 fatty acids 1,000 mg 1,000 mg PO QAM 02/22/18 04/05/19 History capsule psyllium husk 0.4 gram capsule 0.4 gm PO QAM 04/06/18 04/05/19 History atorvastatin 10 mg tablet 5 mg PO QPM tab 05/16/18 04/05/19 History Dilaudid 1 dose INTRATHECAL DAILY 06/23/18 04/05/19 History dorzolamide-timolol (PF) 1 drp OPHTHALMIC (EYE) BID 06/23/18 04/05/19 History potassium chloride 20 meq PO DAILY 08/16/18 04/05/19 History ascorbic acid (vitamin C) [Vitamin 500 mg PO DAILY 10/06/18 04/05/19 History C] gabapentin 300 mg capsule 300 mg PO BID #60 cap 04/05/19 04/05/19 Rx Past Med/Surg History Medical History Chronic interstitial cystitis (Chronic) Deep vein thrombosis (Chronic) LE DVT 40+ YEARS AGO- AC X 1 MONTH; NO ISSUES SINCE Degenerative disc disease (Chronic) Diverticular disease (Chronic) Dyslipidemia (Chronic) Fusion of spine X1 LUMBAR Glaucoma (Chronic) Hypertension (Chronic) Lumbar post-laminectomy syndrome (Chronic) Mitral valve prolapse (Chronic) NO RECENT ECHO; NO MURMUR NOTED ON PAT EXAM ON 06/29/18 Obesity (Chronic) Osteoarthritis (Chronic) Presence of intrathecal pump (Chronic) OR MADE AWARE Wound dehiscence of intrathecal pump 07/05/19 Surgical History History of cholecystectomy (Chronic) History of colonoscopy (Chronic) History of hysterectomy (Chronic) IVONNE History of laminectomy X2 History of lumbar surgery (Chronic) MULTIPLE WITH REPAIR OF NERVE DAMAGE S/P BSO (bilateral salpingo-oophorectomy) S/P excision of lipoma (Resolved) S/P exploratory laparotomy BENIGN TUMOR IN THE ABDOMEN Status post insertion of intrathecal pump (Chronic) INTRATHECAL PUMP REPLACEMENT 09/17/15 Intrathecal catheter replacement 10/11/18 Social History Preferred Language: German Communication Ability: Effective Visual Impairment: Limited Hearing Ability: Normal 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 Physical Exam Physical Exam: GENERAL: 68 year old white female that appears her stated age. Speech and cognition is intact. Mood and affect is appropriate. In no acute distress. HEAD: Normocephalic; atraumatic. EYES: No conjunctival injection. EOM intact. ENT: No external ear discharge or lesions. No rhinorrhea or epistaxis. Moist oral mucosa. NECK: Full ROM; trachea is midline; no TTP; no cervical lymphadenopathy. CARDIO: Regular rate and rhythm. No murmurs, rubs, or gallops. PULM: Clear to auscultation. No wheezes, rales, or rhonchi. CHEST: Regular chest respiration and excursion. ABDOMEN: Active bowel sounds throughout; non-tender to palpation. The intrathecal pump is located in the right lower abdomen. The superior aspect of the pump is protruded through the skin by 2 cm. The catheter is visualized on the pump. EXTREMITIES: Using all extremities appropriately. BACK: Loss of lumbar lordosis. Well healed surgical incision. NEURO: CN II-XII grossly intact with no focal deficits noted. Normal gait. SKIN: No lesions, erythema, or rashes noted.
[~2019-07-05 12:45] MED LIST changes: +CEFAZOLIN 2000MG 2,000 MG/15 ML SYR IV SCH; -LR 15ML/HR IV SCH; -VANCOMYCIN HCL 1,000 MG in SODIUM CHLORIDE 0.9% 250 ML IV SCH; -VANCOMYCIN HCL 1,000 MG/270 ML BAG IV SCH
--- NOTE | 2019-07-05 13:26 | Anesthesiology Consultation ---
Date of Service July 05, 2019 Assessment & Plan (1) Encounter for pre-operative examination: Chart Review Chart Review: Acceptable Risk for Surgery (pending pre op testing) and Patient seen in Pre Admission Testing Consults Requested none ASA ASA3 Proposed Anesthesia Anesthesia Type: General Risk / Benefits Reviewed With: PT / POA / Parent / Guardian, Accepts Plan and Informed Consent Obtained History Surgery Operation Date: 07/05/19 07:00 Proposed Procedures p Removal of Drug Administration Intrathecal Pain Pump and Intrathecal Catheter - Arturo Jorge MD, FIPP Height/Weight Height: 5 ft 5 in Weight: 83.6 kg Allergies Allergy/AdvReac Type Severity Reaction Status Date / Time gabapentin Allergy Intermediate chest pain Verified 07/05/19 14:41 cephalexin AdvReac Intermediate INCREASED Verified 07/05/19 14:43 BP Medications Home Medications Medication Instructions Recorded Confirmed Last Taken amlodipine 5 mg tablet 5 mg PO QAM 02/22/18 07/05/19 07/05/19 06:00 aspirin 81 mg tablet,delayed 81 mg PO QPM 02/22/18 07/05/19 07/04/19 21:00 release hydrochlorothiazide 25 mg tablet 25 mg PO QAM 02/22/18 07/05/19 07/05/19 06:00 lisinopril 20 mg tablet 20 mg PO BID tab 02/22/18 07/05/19 07/05/19 06:00 multivitamin 1 cap PO QAM 02/22/18 07/05/19 07/04/19 08:00 omega-3 fatty acids 1,000 mg 1,000 mg PO QAM 02/22/18 07/05/19 07/04/19 08:00 capsule psyllium husk 0.4 gram capsule 0.4 gm PO QAM 04/06/18 07/05/19 07/04/19 08:00 atorvastatin 10 mg tablet 5 mg PO QPM tab 05/16/18 07/05/19 07/04/19 21:00 Dilaudid 1 dose INTRATHECAL DAILY 06/23/18 07/05/19 07/05/19 06:00 dorzolamide-timolol (PF) 1 drp OPHTHALMIC (EYE) BID 06/23/18 07/05/19 10/11/18 07:00 potassium chloride 10 meq PO DAILY 08/16/18 07/05/19 07/04/19 08:00 ascorbic acid (vitamin C) [Vitamin 500 mg PO DAILY 10/06/18 07/05/19 07/04/19 08:00 C] NPO Date Last Intake of Fluids: 07/05/19 Time Last Intake of Fluids: 06:30 Date Last Intake of Solids: 07/05/19 Time Last Intake of Solids: 06:30 Past Medical History Medical History Chronic interstitial cystitis (Chronic) Deep vein thrombosis (Chronic) LE DVT 40+ YEARS AGO- AC X 1 MONTH; NO ISSUES SINCE Degenerative disc disease (Chronic) Diverticular disease (Chronic) Dyslipidemia (Chronic) Fusion of spine X1 LUMBAR Glaucoma (Chronic) Hypertension (Chronic) Lumbar post-laminectomy syndrome (Chronic) Mitral valve prolapse (Chronic) NO RECENT ECHO; NO MURMUR NOTED ON PAT EXAM ON 07/05/19 Obesity (Chronic) Osteoarthritis (Chronic) Presence of intrathecal pump (Chronic) Wound dehiscence of intrathecal pump 07/05/19 Exercise / Class Metabolic Activity II 4-5 Yardwork/Stairs/Walk up hill (Denies CP or SOB with 1 FOS, walks dog daily) Past Family History Family History Mother FHx: pancreatic cancer Other No family history of adverse response to anesthesia Past Surgical History Surgical History History of appendectomy History of cholecystectomy (Chronic) History of colonoscopy (Chronic) History of hysterectomy (Chronic) IVONNE History of laminectomy X2 History of lumbar surgery (Chronic) MULTIPLE WITH REPAIR OF NERVE DAMAGE S/P BSO (bilateral salpingo-oophorectomy) S/P excision of lipoma (Resolved) S/P exploratory laparotomy BENIGN TUMOR IN THE ABDOMEN Status post insertion of intrathecal pump (Chronic) INTRATHECAL PUMP REPLACEMENT 09/17/15 Intrathecal catheter replacement 10/11/18 Past Anesthesia History No Hx of Anesthesia Complications (other than nausea) and No Family Hx of Anesthesia Complications History of PONV History of PONV (some nausea with previous surgery) and Hx of Motion Sickness Social History Smoking Status: Never smoker Do You Dip or Chew Tobacco: No Hx Alcohol Use: No Hx Substance Use: No substance use type: does not use Review of Systems Pt denies any recent chest pain, shortness of breath, palpitations, cough, fever or URI. +24hr stomach bug ~1 week ago Physical Exam Vital Signs Last Vital Signs Temp 36.7 C 07/05/19 14:21 Pulse 64 07/05/19 14:21 Resp 18 07/05/19 14:21 BP 166/85 H 07/05/19 14:21 Pulse Ox 98 07/05/19 14:21 ENMT Mouth: + chipped teeth (few chipped in rear); no dental restorations and no loose teeth Thyromental Distance: > or= 3.5 Finger Breadths (3.5) Mallampati Class: II Neck normal visual inspection; neck extension not limited Respiratory normal respiratory effort Auscultation: lungs clear to auscultation bilaterally Cardiovascular Rate/Rhythm: regular rate and regular rhythm Heart Sounds: no murmur Testing Laboratory Results 07/05/19 13:45 07/05/19 13:45 PT 10.1 Seconds (9.0-12.0) 07/05/19 13:45 INR 1.0 (0.9-1.1) 07/05/19 13:45 APTT 23.2 Seconds (21.0-31.0) 07/05/19 13:45 Urine Color Yellow 07/05/19 13:45 Urine Appearance Clear (Clear) 07/05/19 13:45 Urine pH 6.0 (4.5-7.5) 07/05/19 13:45 Ur Specific [place] 1.008 (1.000-1.030) 07/05/19 13:45 Urine Protein Negative (Negative) 07/05/19 13:45 Urine Glucose (UA) Negative (Negative) 07/05/19 13:45 Urine Ketones Negative (Negative) 07/05/19 13:45 Urine Nitrite Negative (Negative) 07/05/19 13:45 Ur Leukocyte Esterase Negative (Negative) 07/05/19 13:45 Electrocardiogram Date: 07/05/19 Findings: + SB @ (55bpm) Nonspecific T wave abnormality. *unconfirmed
[2019-07-05] MEDS ORDERED: VANCOMYCIN HCL 1,000 MG in SODIUM CHLORIDE 0.9% 250 ML IV SCH (14:15)
[2019-07-05] MEDS ORDERED: LR 15ML/HR IV SCH (14:30)
[2019-07-05] MEDS ORDERED: cefTRIAXone SODIUM 2,000 MG in DEXTROSE 5% 50 ML IV SCH (14:30)
[2019-07-05 14:40] LABS: Basophils # (auto) 0.01 K/uL (0-0.2); Basophils % (auto) 0.2 %; Eosinophils # (auto) 0.06 K/uL (0-0.5); Eosinophils % (auto) 1.1 %; Hematocrit (blood only) 44.1 % (37-47); Immature Granulocytes # (auto) 0.01 K/uL (0.00-0.02); Immature Granulocytes % (auto) 0.2 %; Lymphocytes # (auto) 1.47 K/uL (1.2-3.4); Lymphocytes % (auto) 26.2 %; Mean Corpuscular Hemoglobin 31.4 pg (25-34); Mean Corpuscular Volume 92.5 fL (80-100); Mean Platelet Volume 11.2 fL (7.4-10.4); Monocytes # (auto) 0.35 K/uL (0.11-0.59); Monocytes % (auto) 6.2 %; Neutrophils # (auto) 3.71 K/uL (1.4-6.5); Neutrophils % (auto) 66.1 %; Platelet Count 206 K/uL (130-400); RDW Coefficient of Variation 13.8 % (11.5-14.5); RDW Standard Deviation 46.6 fL (36.4-46.3); Red Blood Count 4.77 M/uL (4.2-5.4); White Blood Count 5.61 K/uL (4.8-10.8)
[2019-07-05 14:48] LABS: BUN Creatinine Ratio 17.1 (10-20); Calcium 10.1 mg/dl (8.5-10.1); Creatinine Clr Calc Pharmacy 60.1 ml/min; Est GFR (African American) 72.2; Est GFR (Non-African American) 62.3; Potassium 3.8 mmol/L (3.5-5.1)
[2019-07-05 14:51] LABS: Partial Thromboplastin Ratio 0.9; Partial Thromboplastin Time 23.2 Seconds (21.0-31.0); Prothrombin Time 10.1 Seconds (9.0-12.0)
--- NOTE | 2019-07-05 14:56 | Electrocardiogram Report ---
Test Reason : Blood Pressure : / mmHG Vent. Rate : 055 BPM Atrial Rate : 055 BPM P-R Int : 136 ms QRS Dur : 100 ms QT Int : 452 ms P-R-T Axes : 069 059 066 degrees QTc Int : 432 ms Sinus bradycardia Nonspecific ST and T wave abnormality Abnormal ECG When compared with ECG of 29-JUN-2018 14:05, Nonspecific T wave abnormality, worse in Anterolateral leads QT has shortened Confirmed by Ash Monroe ([id number]) on 07/05/2019 2:56:20 PM Referred By: Arturo Jorge Confirmed By:Ash Monroe
[2019-07-05] MEDS ORDERED: PROPOFOL IV EMULSION 10 MG/ML 20 ML VIAL IV ONE (15:00)
[2019-07-05] MEDS ORDERED: MIDAZOLAM HCL 1 MG/ML 2ML VIAL ONE (15:00)
[2019-07-05] MEDS ORDERED: LIDOCAINE HCL 2% 2 ML VIAL/AMP(20MG/ML) INFIL ONE (15:00)
[2019-07-05] MEDS ORDERED: fentaNYL citrate 100 MCG/2 ML VIAL ONE ×4 (15:00→18:31)
[2019-07-05] MEDS ORDERED: ONDANSETRON INJ 2 MG/ML 2 ML VIAL ONE (15:00)
[2019-07-05 15:01] LABS: Appearance Urine Clear (Clear); Bilirubin Urine Negative (Negative); Blood Urine Negative (Negative); Color Urine Yellow; Glucose Urine UA Negative (Negative); Ketones Urine Negative (Negative); Leukocyte Esterase Urine Negative (Negative); Nitrite Urine Negative (Negative); Protein Urine Negative (Negative); Specific Gravity Urine 1.008 (1.000-1.030); Urobilinogen Urine Negative (Negative)
[2019-07-05] MEDS ORDERED: ePHEDrine sulfate 50 MG/ML AMP IV PRN (15:47)
[2019-07-05] MEDS ORDERED: ATROPINE SULFATE 0.1 MG/ML 10ML SYR IV PRN (15:47)
[2019-07-05] MEDS ORDERED: BACITRACIN INJ 50,000 UNIT VIAL ONE (15:47)
[2019-07-05] MEDS ORDERED: fentaNYL citrate 100 MCG/2 ML VIAL IV PRN (15:47)
[2019-07-05] MEDS ORDERED: ONDANSETRON INJ 2 MG/ML 2 ML VIAL IV PRN (15:47)
[2019-07-05] MEDS ORDERED: IOPAMIDOL INJ 61% 15 ML VIAL ONE (16:04)
[2019-07-05] MEDS ORDERED: LIDOCAINE/EPINE 2% 1:100,000 20ML ONE (16:04)
[2019-07-05] MEDS ORDERED: BUPIVACAINE/EPINEPHRINE 0.5% MPF 1:200,000 10 ML VIAL ONE (16:39)
[2019-07-05] MEDS ORDERED: ePHEDrine sulfate 50 MG/ML SYR ONE (16:58)
[2019-07-05 17:38] LABS: Appearance CSF Clear; CSF Count Tube # 3; CSF Xanthrochromic No xanthochromia; Color CSF Colorless
[2019-07-05 17:40] LABS: Red Blood Cell CSF (A) 6 /uL (0-); White Blood Cell CSF (A) 0 /uL (0-5)
[2019-07-05 17:44] LABS: CSF Glucose 56 mg/dl (40-70); Total Protein CSF 32.1 mg/dl (15-45)
[2019-07-05 17:50] LABS: Lactate CSF 1.9 mmol/L (0.6-2.2)
[2019-07-05] MEDS ORDERED: ROCURONIUM BROMIDE 10 MG/ML 5 ML VIAL ONE (18:16)
[2019-07-05] MEDS ORDERED: NALOXONE HCL 0.4 MG/1 ML VIAL/CARP IV PRN (18:24)
[2019-07-05] MEDS ORDERED: MAGNESIUM CITRATE 296 ML/BTL PO PRN (18:24)
[2019-07-05 18:32] LABS: CSF Chemistry Tube # 1
[2019-07-05] MEDS ORDERED: MoRPHine SULFATE IR 15 MG TAB (IMMEDIATE RELEASE) PO PRN (18:35)
[2019-07-05] MEDS ORDERED: HYDROmorphone INJ 0.5 MG/0.5 ML SYR ONE (18:38)
[2019-07-05] MEDS ORDERED: VANCOMYCIN CONSULT ACTIVE PRN (18:42)
[2019-07-05] MEDS ORDERED: ACETAMINOPHEN 500 MG TAB PO PRN (18:45)
[2019-07-05] MEDS ORDERED: HYDROmorphone INJ 1 MG/ML SYRINGE ONE (18:50)
[2019-07-05] MEDS ORDERED: HYDROmorphone INJ 2 MG/ML SYR/VIAL IV PRN (18:52)
--- NOTE | 2019-07-05 19:25 | Operative Report ---
Post Operative Report Pre & Post Diagnosis Operation Date: 07/05/19 07:00 Pre-Op Diagnosis: Wound Deliscience of Intrathecal Pain Pump Post-Op Diagnosis: Wound Deliscience of Intrathecal Pain Pump I identified the patient and participated in the time-out.: Yes Procedure Operation Date: 07/05/19 07:00 Actual Procedures Explantation of of Drug Administration Intrathecal Pain Pump and Intrathecal Catheter and application of wound vac- Arturo Jorge MD, CONCEPCIÓN Surgeon Arturo Jorge MD, CONCEPCIÓN [employer] Director Lashonda Jernigan DO Estimated Blood Loss 20 Findings Consistent with Post-Op Diagnosis Wound dehiscence pump pocket site right lower quadrant. Specimens Superficial wound culture at the pump pocket site, deep culture pump pocket site, CSF cultures. Drains Wound VAC right lower quadrant abdominal wound. Anesthesia Type General Complications none Disposition Accompanied Patient To Recovery: No Disposition: Recovery Room Indications Wound dehiscence right lower quadrant pump pocket site Description of Procedure INTRATHECAL PUMP EXPLANTATION PROCEDURE PERFORMED: Intrathecal pump explantation. PREOPERATIVE DIAGNOSIS: Wound dehiscence pump pocket site right lower quadrant POSTOPERATIVE DIAGNOSIS: Same. COMPLICATIONS: None. SURGEON: Dr. Osorio Jorge. ANESTHESIA: General/endotracheal. MATERIAL FORWARDED TO THE LAB: Explanted pump. EBL: 25 ml INDICATIONS: Eulalio Velasquez is 68-year-old female with intrathecal drug delivery system implanted for chronic pain. She was seen for routine pump refill today at the office and was noted to have wound dehiscence at the upper pole of the pump pocket site in the right lower quadrant. She was advised to have the pump explanted due to concerns of pump being infected. The patient was explained the risks, benefits, alternatives of the procedure and agreed to proceed as above. Informed consent was obtained and witnessed. A time out was performed after the patient was brought into the Operating Room. Antibiotics consisting of Rocephin 2 g IV and vancomycin 1000 g were given after the CSF and wound cultures were taken. The patient was then induced with general anesthesia without complications and was placed in the supine. The skin was prepped with ChloraPrep and Betadine and draped in sterile fashion. The existing pump was identified and was noted to have wound dehiscence in in the upper edge of the pump pocket with catheter and pump exposed. Using a scalpel, electro cautery, and blunt dissection, the existing pump was fully exposed. The four retaining sutures were removed and the old pump was explanted. The catheter was located using fouroscopy and incision was made in the lumbar spine area and carried down to locate the catheter using electrocautery. Catheter was followed to the anchor and the retaining sutures were removed. Catheter was pulled out of the intrathecal space and found to be intact. Purse string sutures with 0-silk was taken in the supraspinous ligaments to minimize CSF leak in the future. No CSF leak was seen at this time. Both wounds were irrigated with Betadine containing normal saline. Both wounds were closed in similar fashion using continuous 0 strata fix lock suture for deeper layer and running 3-0 strata fix suture for subcuticular layer. Prineo to the skin. Silver Impregnated dressing was applied to both sites. Abdominal binder was placed. No complications were noted throughout the procedure. The patient was allowed to emerge from general anesthesia and transported to the recovery room in stable condition uneventfully. The patient will follow up at [facility] pain clinic within 7 days for a wound check and then plan to have the destiney removed at day 14. I attest to the content of the Intraoperative Record and any orders documented therein. Any exceptions are noted below.
--- NOTE | 2019-07-05 19:55 | Anesthesiology Progress Note ---
Date of Service July 05, 2019 Anesthesia Post Procedure Vital Signs Vital Signs: Temp Pulse Pulse Resp BP BP Pulse Ox 07/05/19 19:20 36.6 C 68 13 140/69 94 07/05/19 19:10 68 12 139/72 95 07/05/19 19:00 69 17 142/72 H 96 07/05/19 18:50 66 15 144/69 H 97 07/05/19 18:40 67 10 L 135/69 99 07/05/19 18:34 37.0 C 77 20 130/72 98 07/05/19 14:21 36.7 C 64 18 166/85 H 98 07/05/19 13:10 36.6 C 59 L 18 144/68 H 96 Pain Intensity Right Flank: Pain Intensity: 4 Transfer of Care Handoff Completed per policy Notes Mental Status: alert / awake / arousable and participated in evaluation Patient Amnestic to Procedure: Yes Nausea / Vomiting: adequately controlled Pain: adequately controlled Airway Patency, RR, SpO2: stable & adequate BP & HR: stable & adequate Hydration State: stable & adequate Anesthetic Complications: no major complications apparent and Pt Satisfied with anesthetic care
[2019-07-05] MEDS: LACTATED RINGER'S 1,000 ML IV SCH (20:42)
[2019-07-05] MEDS: MoRPHine SULFATE CR 15 MG TABCR PO SCH (20:42)
[2019-07-05] MEDS ORDERED: ATORVASTATIN 10 MG TAB PO SCH (21:00)
[2019-07-05] MEDS ORDERED: ASPIRIN 81 MG ECTAB PO SCH (21:00)
--- NOTE | 2019-07-05 21:14 | Pharmacy Report ---
Pharmacy Abx Initial Consult - Date of Service July 05, 2019 - Pharmacy Dosing Scope Date of Consult: 07/05/2019 Consultation requested by: Dr. Jorge Pharmacy is consulted to initiate Vancomycin IV dosing therapy, order appropriate labs and adjust drug dose/frequency. - Subjective The patient is a 68 year old F admitted on 07/05/19 18:25 for pain pump removal and treatment of wound dehiscence - Objective Height: 5 ft 5 in Weight: 87 kg Vital Signs (Past 12hrs): Vital Signs Temp Pulse Pulse Resp BP BP Pulse Ox 07/05/19 19:20 36.6 C 68 13 140/69 94 07/05/19 19:10 68 12 139/72 95 07/05/19 19:00 69 17 142/72 H 96 07/05/19 18:50 66 15 144/69 H 97 07/05/19 18:40 67 10 L 135/69 99 07/05/19 18:34 37.0 C 77 20 130/72 98 07/05/19 14:21 36.7 C 64 18 166/85 H 98 07/05/19 13:10 36.6 C 59 L 18 144/68 H 96 Lab Results (24hrs): Laboratory Tests (24 Hours) 07/05/19 07/05/19 13:45 13:45 WBC 5.61 Neut # (Auto) 3.71 Creatinine 0.93 Est Cr Clr Drug Dosing 60.1 Micro Results: 07/05/19 Unknown Gram Stain - Pending Abdomen, Right Lower Quadrant Aerobic and Anaerobic Culture - Pending 07/05/19 17:17 Gram Stain - Final Back,Lower Aerobic and Anaerobic Culture - Pending 07/05/19 17:01 Gram Stain - Final Cerebral Spinal Fluid CSF Culture - Pending 07/05/19 Unknown Gram Stain - Pending Abdomen, Right Lower Quadrant Aerobic and Anaerobic Culture - Pending 07/05/19 Unknown Gram Stain - Pending Abdomen, Right Lower Quadrant Aerobic and Anaerobic Culture - Pending 07/05/19 17:01 Fungal Culture - Pending Cerebral Spinal Fluid - Assessment & Plan Assessment 68 year old F with infected pain pump. s/p pump removal today and now ongoing treatment of wound area (skin and soft tissue infection). Patient receiving IV Vancomycin and Ceftriaxone 2gm IV daily Patient appears to be near baseline renal function Plan IV Vancomycin and IV Ceftriaxone for treatment of skin and soft tissue infection at the site of pain pump removal Vancomycin IV * Estimated PK Parameters: Vd 0.65 L/kg, Nabor 0.55 hr-1, t1/2 12.6 hr * Loading dose: 1000 mg (11 mg/kg) * Maintenance dose: 1250 mg IV (14.4 mg/kg) every 16 hours * Goal trough level for cellulitis: 13 to 17 mcg/mL * Trough level ordered for 07/07/2019 before the 1000 hrs dose * A less than traditional dose and/or extended dosing interval has/have been selected due to likelihood of drug accumulation in obese patient Pharmacy will continue to follow and will adjust dose/frequency as necessary. Thank you.
[2019-07-05] MEDS: DORZOLAMIDE/TIMOLOL 22.3/6.8MG/ML 10 ML BTL OP SCH (21:27)
[2019-07-05] MEDS: DOCUSATE SODIUM 100 MG CAP PO SCH (21:29)
[2019-07-05] MEDS: lisinopriL 20 MG TAB PO SCH (21:29)
--- NOTE | 2019-07-05 22:24 | Consultation ---
Date of Consultation July 05, 2019 Assessment & Plan (1) Status post insertion of intrathecal pump: No noted complications Follow CSF cultures Will be present to help with any acute issues overnight if needed (2) Hypertension: Vitals are WNL for age Continue to monitor hemodynamics No current concerns and okay to continue with current medical regimen of: Amlodipine 5mg PO HCTZ 25mg PO Lisinopril 20mg PO (3) Dyslipidemia: c/w Atorvastatin 10mg PO c/w [place] 3 supplement Supervising Physician Co-Signing Physician Notes Attending addendum: I have physically seen this patient, have supervised the medical residents activities, and agree with the H&P unless as otherwise noted. Assessment and Plan: Status post removal of intrathecal pump and intrathecal portion of catheter- Medically stable post procedure Continue ceftriaxone IV as ordered. Follow culture and sensitivities. Hypertension- Continue amlodipine, HCTZ and lisinopril with hold parameters. Remainder orders and notations as noted. History of Present Illness Requesting Physician: Arturo Jorge MD, FIPP Reason for Consultation: Medical Management Attending Physician: Arturo Jorge MD, FIPP History of Present Illness Eulalio Velasquez is a 68-year-old female with past medical history of chronic pain, HTN, DVT, DDD, OA, HLD, who had intrathecal explantation of drug delivery system with a dehiscence of the pump pocket site because of high likelihood of infection at the site. She elected to undergo removal of the pump and the intrathecal portion of the catheter. We were consulted for medical management. She received Rocephin 2 g IV and vancomycin 1000 g after the CSF and wound cultures were taken. Currently, she is resting with comfort, no current new acute complaints, no fevers/chills, chest pain, shortness of breath. Allergies Allergy/AdvReac Type Severity Reaction Status Date / Time gabapentin Allergy Intermediate chest pain Verified 07/05/19 14:41 cephalexin AdvReac Intermediate INCREASED Verified 07/05/19 14:43 BP Home Medications Home Medications Medication Instructions Recorded Confirmed Type amlodipine 5 mg tablet 5 mg PO QAM 02/22/18 07/05/19 History aspirin 81 mg tablet,delayed 81 mg PO QPM 02/22/18 07/05/19 History release hydrochlorothiazide 25 mg tablet 25 mg PO QAM 02/22/18 07/05/19 History lisinopril 20 mg tablet 20 mg PO BID tab 02/22/18 07/05/19 History multivitamin 1 cap PO QAM 02/22/18 07/05/19 History omega-3 fatty acids 1,000 mg 1,000 mg PO QAM 02/22/18 07/05/19 History capsule psyllium husk 0.4 gram capsule 0.4 gm PO QAM 04/06/18 07/05/19 History atorvastatin 10 mg tablet 5 mg PO QPM tab 05/16/18 07/05/19 History dorzolamide-timolol (PF) 1 drp OPHTHALMIC (EYE) BID 06/23/18 07/05/19 History potassium chloride 10 meq PO DAILY 08/16/18 07/05/19 History ascorbic acid (vitamin C) [Vitamin 500 mg PO DAILY 10/06/18 07/05/19 History C] cephalexin [Keflex] 500 mg PO BID 10 Days #20 cap 07/06/19 Rx morphine 15 mg PO Q4H PRN #60 tab NS 07/06/19 Rx morphine 30 mg PO Q12H #120 tab 07/06/19 Rx naloxone [Narcan] 1 sprays INTNAS Q2M PRN #2 ea 07/06/19 Rx Patient History Medical History Chronic interstitial cystitis (Chronic) Deep vein thrombosis (Chronic) LE DVT 40+ YEARS AGO- AC X 1 MONTH; NO ISSUES SINCE Degenerative disc disease (Chronic) Diverticular disease (Chronic) Dyslipidemia (Chronic) Fusion of spine X1 LUMBAR Glaucoma (Chronic) Hypertension (Chronic) Lumbar post-laminectomy syndrome (Chronic) Mitral valve prolapse (Chronic) NO RECENT ECHO; NO MURMUR NOTED ON PAT EXAM ON 07/05/19 Obesity (Chronic) Osteoarthritis (Chronic) Presence of intrathecal pump (Chronic) Wound dehiscence of intrathecal pump 07/05/19 Surgical History History of appendectomy History of cholecystectomy (Chronic) History of colonoscopy (Chronic) History of hysterectomy (Chronic) IVONNE History of laminectomy X2 History of lumbar surgery (Chronic) MULTIPLE WITH REPAIR OF NERVE DAMAGE S/P BSO (bilateral salpingo-oophorectomy) S/P excision of lipoma (Resolved) S/P exploratory laparotomy BENIGN TUMOR IN THE ABDOMEN Status post insertion of intrathecal pump (Chronic) INTRATHECAL PUMP REPLACEMENT 09/17/15 Intrathecal catheter replacement 10/11/18 Family History Mother FHx: pancreatic cancer Other No family history of adverse response to anesthesia Social History Preferred Language: Qatari Communication Ability: Effective Visual Impairment: Limited Hearing Ability: Normal Court Collections Officer Required: No Beliefs That Will Affect Care: None marital status: marital status details: Has 2 adult children Current Living Situation: Spouse current occupational status: disabled current occupation: Previously employed by [employer] Feels Safe at Home: Yes Smoking Status: Never smoker Second Hand Exposure: No ; Hx Alcohol Use: No Hx Substance Use: No Review of Systems Review of Systems: All systems reviewed & are unremarkable except as noted in HPI & below Constitutional: no fever and no chills Eyes: no diplopia and no worsening vision Ear, Nose, Mouth, Throat: no nasal congestion and no sore throat Respiratory: no cough and no dyspnea Cardiovascular: no chest pain and no chest pain at rest Gastrointestinal: no nausea and no vomiting Neurologic: no syncope and no confusion Physical Exam Constitutional: WD/WN, vitals as above comfortable Neck: normal visual inspection and trachea midline Respiratory: normal respiratory effort; no respiratory distress and does not use accessory muscles Cardiovascular: Rate/Rhythm: regular rhythm and + bradycardic (58 on laboratory monitor) Musculoskeletal: Head/Neck/Chest: normocephalic and head atraumatic Skin: no rashes, warm and dry Neurologic: moves all extremities Results & Data Vital Signs (Past 12 Hours) Vital Signs Temp Pulse Pulse Resp BP BP Pulse Ox 07/05/19 19:20 36.6 C 68 13 140/69 94 07/05/19 19:10 68 12 139/72 95 07/05/19 19:00 69 17 142/72 H 96 07/05/19 18:50 66 15 144/69 H 97 07/05/19 18:40 67 10 L 135/69 99 07/05/19 18:34 37.0 C 77 20 130/72 98 07/05/19 14:21 36.7 C 64 18 166/85 H 98 07/05/19 13:10 36.6 C 59 L 18 144/68 H 96 PG Care Time/CCT Total # of Minutes Spent Total Time Spent with Patient: Total time spent is greater than 50% in coordination of care (as documented) at patient's floor/unit and/or counseling patient: Coding Level of Care Code 50072 OBS Care - Level 2 Diagnoses Status post insertion of intrathecal pump Z98.890 Hypertension I10 Dyslipidemia E78.5 Resident Activity Tracking Resident Involvement: Resident Care Provided Care Provided: Adult Hospital Medicine
[2019-07-06] MEDS ORDERED: VANCOMYCIN HCL 1,250 MG in SODIUM CHLORIDE 0.9% 250 ML IV SCH (02:00)
[2019-07-06] MEDS ORDERED: MoRPHine SULFATE IR 15 MG TAB (IMMEDIATE RELEASE) PO ONE (03:20)
[2019-07-06] MEDS: MoRPHine SULFATE CR 15 MG TABCR PO SCH (06:47)
--- NOTE | 2019-07-06 08:30 | Anesthesiology Progress Note ---
Date of Service July 06, 2019 Anesthesia Post Procedure Vital Signs Vital Signs: Temp Pulse Pulse Pulse Resp BP BP 07/06/19 07:41 36.7 C 58 L 18 121/61 07/06/19 03:53 36.6 C 60 18 135/75 07/06/19 01:33 52 L 07/05/19 23:04 36.9 C 56 L 18 150/77 H 07/05/19 19:20 36.6 C 68 13 140/69 07/05/19 19:10 68 12 139/72 07/05/19 19:00 69 17 142/72 H 07/05/19 18:50 66 15 144/69 H 07/05/19 18:40 67 10 L 135/69 07/05/19 18:34 37.0 C 77 20 130/72 07/05/19 14:21 36.7 C 64 18 166/85 H 07/05/19 13:10 36.6 C 59 L 18 144/68 H Pulse Ox 07/06/19 07:41 95 07/06/19 03:53 93 07/06/19 01:33 07/05/19 23:04 98 07/05/19 19:20 94 07/05/19 19:10 95 07/05/19 19:00 96 07/05/19 18:50 97 07/05/19 18:40 99 07/05/19 18:34 98 07/05/19 14:21 98 07/05/19 13:10 96 Pain Intensity Right Flank: Pain Intensity: 4 Back: Pain Intensity: 6 Notes Mental Status: alert / awake / arousable and participated in evaluation Patient Amnestic to Procedure: Yes Nausea / Vomiting: adequately controlled Pain: adequately controlled Airway Patency, RR, SpO2: stable & adequate BP & HR: stable & adequate Hydration State: stable & adequate Anesthetic Complications: no major complications apparent and Pt Satisfied with anesthetic care
[2019-07-06] MEDS: DORZOLAMIDE/TIMOLOL 22.3/6.8MG/ML 10 ML BTL OP SCH (08:33)
[2019-07-06] MEDS: DOCUSATE SODIUM 100 MG CAP PO SCH (08:33)
[2019-07-06] MEDS: lisinopriL 20 MG TAB PO SCH (08:34)
[2019-07-06] MEDS: MoRPHine SULFATE IR 15 MG TAB (IMMEDIATE RELEASE) PO PRN ×3 (08:44→16:51)
[2019-07-06] MEDS: LACTATED RINGER'S 1,000 ML IV SCH (08:45)
--- NOTE | 2019-07-06 08:58 | Pain Management Progress Note ---
Date of Service July 06, 2019 Assessment & Plan (1) Wound dehiscence: Present on Admission?: Yes (2) Lumbar post-laminectomy syndrome: 1. Patient had dehiscence of the upper aspect of her intrathecal pump pocket in the right lower quadrant upon presentation to our office-the pump was explanted on 07/05/2019 with no obvious evidence of infection near the pump site. The catheter was also completely removed. The patient provided further history of a fall at home approximately 1 week prior to noticing the upper aspect of her wound breaking down. She reports no prior history of metal allergy. We will need to consider metal allergy testing in the outpatient setting. 2. Wound VAC will remain in place at this time. Awaiting evaluation by wound care to determine discharge planning. 3. Antibiotics will remain in place pending outcome of cultures 4. Will increase MS Contin to 30 mg every 12 hours 5. Will adjust MSIR from every 6H to every 4H Present on Admission?: Yes Subjective Mrs. Velasquez is a 68-year-old white female who is well-known to the pain service due to her history of chronic intractable low back pain secondary to lumbar postlaminectomy syndrome who had the upper part of her intrathecal pump break through the skin with concern for wound dehiscence. This was identified upon her follow-up visit in our office yesterday for routine refill of her intrathecal pump. She today reported that she suffered a fall at home approximately 1 week prior to her noticing the intrathecal pump coming through the skin. She believes there is a direct correlation between the fall and the opening in the skin. During removal of the pump in the operating setting there is no evidence of pus within the pump pocket site and initial Gram stain has been negative of the CSF and pump pocket. The patient remains on IV antibiotic therapy at this time. Wound VAC remains in place and wound care has been consulted. Patient reports some discomfort in her axial lumbar region overnight which is her typical pain which is been slightly increased in severity. She reports use of MSIR has been effective at diminishing her pain. She reports some frequent urination throughout the night and reports similar experience in the past with opioid withdrawal. She is not experiencing diarrhea, anxiety or shaking at this time. She does report some dry mouth. She denies any chills throughout the night or excessive sweating. Patient reports no prior history of known metal allergy although reports an occasional itching of her ear with "cheap jewelry". Patient denies radicular component to pain. She reports her pain is a 4-6/10. She denies all other constitutional complaints at this time. Patient denies any positional headache. Plan of care discussed with Dr. Lashonda Jernigan. Physical Exam Physical Exam: General: Patient lying quietly upon and the room in no acute distress. Patient was sleeping and was awakened. Speech and thought process appropriate. Mood and affect appropriate. Cognition intact. Abdomen: Wound VAC in place in the right lower quadrant at site of pump explantation. Patient is moderately tender over the explant site to palpation. There is minimal evidence of discharge present in the wound VAC. Back/spine: Aquacel dressing was intact and in place. The Aquasol dressing was lifted for visual inspection. Scant discharge from the incisional site over the midline of the thoracolumbar spine. Nontender to palpation. Minimally tender to palpation. Neurologic: Cranial nerves grossly intact. Ambulatory function not witnessed. Supervising Physician Co-Signing Physician Notes The patient did not have dehiscence of her prior incision site for intrathecal catheter replacement last September 2018. She had previous thinning of the skin at the superior margin 12 o'clock position of the intrathecal pump and it appears that after her fall while walking her dog she had rupture of the pump through her prior region of thinning skin. No evidence of infection is noted after review of cultures either in the CSF or wound site. Rare gram-positive cocci are likely a skin contaminant. Plan to convert to oral Keflex until cultures are negative. Do not see the need for IV antibiotics after discharge. In regards to her wound VAC pump, will defer to wound clinic management. She would be a candidate for replacement of intrathecal pump if she is unable to be controlled on oral opiates in the future, but only after allergy testing has been performed. Recommend utilization of MS Contin 30 mg p.o. every 12 with MSIR 15mg every 4 hours for pain control at this time. Will plan for discharge after wound clinic evaluation and coordination of care for outpatient wound management. Patient updated.
[2019-07-06] MEDS ORDERED: AMLODIPINE BESYLATE 5 MG TAB PO SCH (09:00)
[2019-07-06] MEDS ORDERED: PSYLLIUM 58.6% POWDER PACKET PO SCH (09:00)
[2019-07-06] MEDS ORDERED: POTASSIUM CHLORIDE 10 MEQ TABCR PO SCH (09:00)
[2019-07-06] MEDS ORDERED: OMEGA-3 (PURIFIED FISH OIL) 1 GM CAP PO SCH (09:00)
[2019-07-06] MEDS ORDERED: MULTIVITAMIN TAB PO SCH (09:00)
[2019-07-06] MEDS ORDERED: ASCORBIC ACID 500 MG TAB PO SCH (09:00)
[2019-07-06] MEDS ORDERED: hydroCHLOROthiazide 25 MG TAB PO SCH (09:00)
[2019-07-06 10:02] LABS: Creatinine Clr Calc Pharmacy 77.3 ml/min; Est GFR (African American) 98.3; Est GFR (Non-African American) 84.9
--- NOTE | 2019-07-06 13:09 | Hospitalist Progress Note ---
Date of Service July 06, 2019 Assessment & Plan (1) Wound dehiscence: S/p explantation of intrathecal pump on 07/05/[address] Al. - Presently on ceftriaxone & vancomycin for good Strep/Staph coverage. - Follow CSF and blood cultures from 07/05 - If discharged and desire continued abx coverage, could consider Keflex/Bactrim as a good Strep/Staph (including MRSA) coverage. - Pain management per primary team (2) Hypertension: BP presently 140/75. Overall acceptable range for inpatient. - Continue amlodipine, HCTZ, lisinopril (3) Dyslipidemia: - Continue statin & omega-3 (4) Glaucoma: - Continue home eye drops (5) DVT prophylaxis: SCDs - Will not add heparin given recent surgery; defer to primary team Subjective Doing really well overall. No major pain in the back at present. Reports no fevers/chills, chest pain, shortness of breath, abdominal pain, nausea, or vomiting. Physical Exam Constitutional: WD/WN, vitals as above Eyes: EOM intact bilaterally; no conjunctival abnormality ENMT: external ear and nose normal, oropharynx normal Neck: trachea midline, no thyromegaly normal visual inspection Respiratory: normal respiratory effort, lungs clear to auscultation no respiratory distress Cardiovascular: RRR, no murmur, no edema Gastrointestinal (Abdomen): Inspection/Auscultation: abdomen normal to inspection; abdomen not distended Musculoskeletal: no cyanosis or clubbing, extremities motor strength 5/5 Back is bandaged with wound vac present. Skin: no rashes, warm and dry Neurologic: moves all extremities and awake Psychiatric: Orientation: alert, oriented to person and cooperative Results & Data ([facility]) Vital Signs (Past 12 Hours) Vital Signs Temp Pulse Pulse Resp BP Pulse Ox 07/06/19 11:14 36.8 C 51 L 18 143/74 H 95 07/06/19 07:41 36.7 C 58 L 18 121/61 95 07/06/19 03:53 36.6 C 60 18 135/75 93 07/06/19 01:33 52 L PG Care Time/CCT Total # of Minutes Spent Total Time Spent with Patient: Total time spent is greater than 50% in coordination of care (as documented) at patient's floor/unit and/or counseling patient: Coding Level of Care Code 54564 Subseq Hosp Care Lvl 2 Diagnoses Wound dehiscence T81.30XA Hypertension I10 Dyslipidemia E78.5 Glaucoma H40.9 DVT prophylaxis Z29.9
--- NOTE | 2019-07-06 13:37 | Wound Consultation ---
Date of Consultation July 06, 2019 Assessment & Plan (1) Wound dehiscence: Patient status post explantation of intrathecal pain pump 07/05/2019. Cultures are pending but, are negative so far. Wound VAC will be changed today. Will have home health change consultant the weekend will see patient in the office on Wednesday. Thank you for limited to spent in the care of this patient. Please asked her to call with any questions. History of Present Illness Reason for Consultation: Wound dehiscence of intrathecal pain pump Attending Physician: Arturo Jorge MD, PP History of Present Illness This is a 68-year-old female with a intrathecal drug delivery system implanted for chronic pain, obesity, osteoarthritis, degenerative disc disease, hypertension and dyslipidemia who was admitted for wound dehiscence of intrathecal pain pump pocket. Patient underwent explantation of intrathecal pain pump due to concern for infection. While in the OR a wound VAC was applied. Allergies Allergy/AdvReac Type Severity Reaction Status Date / Time gabapentin Allergy Intermediate chest pain Verified 07/05/19 14:41 cephalexin AdvReac Intermediate INCREASED Verified 07/05/19 14:43 BP Home Medications Home Medications Medication Instructions Recorded Confirmed Type amlodipine 5 mg tablet 5 mg PO QAM 02/22/18 07/05/19 History aspirin 81 mg tablet,delayed 81 mg PO QPM 02/22/18 07/05/19 History release hydrochlorothiazide 25 mg tablet 25 mg PO QAM 02/22/18 07/05/19 History lisinopril 20 mg tablet 20 mg PO BID tab 02/22/18 07/05/19 History multivitamin 1 cap PO QAM 02/22/18 07/05/19 History omega-3 fatty acids 1,000 mg 1,000 mg PO QAM 02/22/18 07/05/19 History capsule psyllium husk 0.4 gram capsule 0.4 gm PO QAM 04/06/18 07/05/19 History atorvastatin 10 mg tablet 5 mg PO QPM tab 05/16/18 07/05/19 History dorzolamide-timolol (PF) 1 drp OPHTHALMIC (EYE) BID 06/23/18 07/05/19 History potassium chloride 10 meq PO DAILY 08/16/18 07/05/19 History ascorbic acid (vitamin C) [Vitamin 500 mg PO DAILY 10/06/18 07/05/19 History C] cephalexin [Keflex] 500 mg PO BID 10 Days #20 cap 07/06/19 Rx morphine 15 mg PO Q4H PRN #60 tab NS 07/06/19 Rx morphine 30 mg PO Q12H #120 tab 07/06/19 Rx Patient History Medical History Chronic interstitial cystitis (Chronic) Deep vein thrombosis (Chronic) LE DVT 40+ YEARS AGO- AC X 1 MONTH; NO ISSUES SINCE Degenerative disc disease (Chronic) Diverticular disease (Chronic) Dyslipidemia (Chronic) Fusion of spine X1 LUMBAR Glaucoma (Chronic) Hypertension (Chronic) Lumbar post-laminectomy syndrome (Chronic) Mitral valve prolapse (Chronic) NO RECENT ECHO; NO MURMUR NOTED ON PAT EXAM ON 07/05/19 Obesity (Chronic) Osteoarthritis (Chronic) Presence of intrathecal pump (Chronic) Wound dehiscence of intrathecal pump 07/05/19 Surgical History History of appendectomy History of cholecystectomy (Chronic) History of colonoscopy (Chronic) History of hysterectomy (Chronic) IVONNE History of laminectomy X2 History of lumbar surgery (Chronic) MULTIPLE WITH REPAIR OF NERVE DAMAGE S/P BSO (bilateral salpingo-oophorectomy) S/P excision of lipoma (Resolved) S/P exploratory laparotomy BENIGN TUMOR IN THE ABDOMEN Status post insertion of intrathecal pump (Chronic) INTRATHECAL PUMP REPLACEMENT 09/17/15 Intrathecal catheter replacement 10/11/18 Family History Mother FHx: pancreatic cancer Other No family history of adverse response to anesthesia Social History Preferred Language: Barbadian Communication Ability: Effective Visual Impairment: Limited Hearing Ability: Normal Clothes Marker Required: No Beliefs That Will Affect Care: None marital status: marital status details: Has 2 adult children Current Living Situation: Spouse current occupational status: disabled current occupation: Previously employed by [employer] Feels Safe at Home: Yes Smoking Status: Never smoker Second Hand Exposure: No ; Hx Alcohol Use: No Hx Substance Use: No Review of Systems Review of Systems: All systems reviewed & are unremarkable except as noted in HPI & below Physical Exam 2 Constitutional: WD/WN, vitals as above Eyes: PERRL, conjunctivae normal, anicteric sclerae ENMT: external ear and nose normal, oropharynx normal Ears: no hearing impairment Skin: Measuring as recorded in nursing documentation. Periwound is intact without inflammation. There is moderate drainage and no foul odor. Neurologic: awake; not confused Psychiatric: A+Ox3, euthymic affect Results & Data Vital Signs (Past 12 Hours) Vital Signs Temp Pulse Pulse Resp BP Pulse Ox 07/06/19 11:14 36.8 C 51 L 18 143/74 H 95 07/06/19 07:41 36.7 C 58 L 18 121/61 95 07/06/19 03:53 36.6 C 60 18 135/75 93 07/06/19 01:33 52 L PG Care Time/CCT Total # of Minutes Spent Total Time Spent with Patient: Total time spent is greater than 50% in coordination of care (as documented) at patient's floor/unit and/or counseling patient: Coding Level of Care Code 39898 Inpt Consult Level 3 Diagnoses Wound dehiscence T81.30XA
[2019-07-06 15:26] VITALS: BP 155/77; PULSE 67; TEMP 97.9; O2SAT 97
--- NOTE | 2019-07-06 15:28 | Pain Management Progress Note ---
Date of Service July 06, 2019 Assessment & Plan (1) Wound dehiscence: Intrathecal pump and catheter delivery system has been removed. She is now on oral morphine for chronic pain relief. She is prescribed MS Contin 30mg BID and MS IR 15mg x 4-6 hours PRN breakthrough pain. She was provided with a prescription for Narcan in case of opioid overdose. Keflex was prescribed to cover for infection. She will follow up with wound clinic Wednesday at 8AM and we will give her a call tomorrow to check to see how she is doing and determine when she will need to be seen for a follow up. May try to schedule follow up on Wednesday after wound clinic visit as she does drive a long distance to get here. Subjective Mrs. Velasquez is a 68 year old white female that received an intrathecal pump and catheter explantation yesterday due to a wound dehiscence. Patient has been taking MS IR 15mg x 4 hours with adequate pain relief. She has not yet taken the MS Contin 30mg that is prescribed BID. Pain is currently rated 4/10 and located in the low back and along the incision site. She does have a wound vac in place and scheduled to see them Wednesday. She denies any fevers, chills, nausea, vomiting, abdominal pain. Case discussed with Dr. Lashonda Jernigan Pain Assessment Pain Assessment [facility] Combined Pain Scale: 4-Mild to Mod - Interrupts ADLs. Decrease in job performance Physical Exam Physical Exam: General: This is a 68 year old white female. In no acute distress.. Abdomen/GI: Wound vac located in RLQ. Back: Aquacel bandage on thoracolumbar incision. MS/Extremity: Moving extremities appropriately. Neuro: Alert and appears oriented. Speech is fluent. Psych: Alert, pleasant, affect is calm
--- NOTE | 2019-07-06 15:30 | Discharge Summary ---
Date of Service July 06, 2019 Admission HPI Per Admitting Provider Mrs. Velasquez is a 68 year old white female that has been well known to the [facility] Pain Service with a history of chronic lumbago secondary to lumbar postlaminectomy syndrome that has required the implantation of an intrathecal pump and catheter delivery system. She was found to have an intrathecal catheter fracture which was replaced on 10/11/2018. With a few dosage changes, she has been reporting adequate relief of pain. Pain is rated 3/10 at its best and 5/10 at its worst. At the last office visit on 04/05/19 there was some skin irritation and thinning along the superior aspect of the pump. She was advised to wear abdominal binder and not to wear jeans along the superior aspect of the pump. She has been wearing the abdominal binder. About 3 weeks ago she had started to notice yellow/clear drainage at the site. Patient has been applying Neosporin and a bandage daily. Admission Exam (Per Admitting) Constitutional GENERAL: 68 year old white female that appears her stated age. Speech and cognition is intact. Mood and affect is appropriate. In no acute distress. HEAD: Normocephalic; atraumatic. EYES: No conjunctival injection. EOM intact. ENT: No external ear discharge or lesions. No rhinorrhea or epistaxis. Moist oral mucosa. NECK: Full ROM; trachea is midline; no TTP; no cervical lymphadenopathy. CARDIO: Regular rate and rhythm. No murmurs, rubs, or gallops. PULM: Clear to auscultation. No wheezes, rales, or rhonchi. CHEST: Regular chest respiration and excursion. ABDOMEN: Active bowel sounds throughout; non-tender to palpation. The intrathecal pump is located in the right lower abdomen. The superior aspect of the pump is protruded through the skin by 2 cm. The catheter is visualized on t he pump. EXTREMITIES: Using all extremities appropriately. BACK: Loss of lumbar lordosis. Well healed surgical incision. NEURO: CN II-XII grossly intact with no focal deficits noted. Normal gait. SKIN: No lesions, erythema, or rashes noted. Discharge Data Consultations 07/05/19 18:27 Consult Hospitalist Routine 07/06/19 14:33 Consult Wound Care Provider Routine Procedures Performed Operation Date: 07/05/19 07:00 Actual Procedures p Removal of Drug Administration Intrathecal Pain Pump and Intrathecal Catheter and application of wound vac (Not Applicable) - Arturo Jorge MD, [facility] Course (1) Lumbar post-laminectomy syndrome: (2) Wound dehiscence: Intrathecal pump and catheter delivery system has been removed. She has been placed on oral morphine for chronic pain relief. She is prescribed MS Contin 30mg BID and MS IR 15mg x 4-6 hours PRN breakthrough pain. Narcan prescription was sent to her pharmacy in case of opioid overdose. Keflex was prescribed to cover for infection. Follow up with wound clinic Wednesday morning at 8AM and we will give her a call tomorrow to check to see how she is doing and determine when she will need to be seen for a follow up. May try to schedule follow up on Wednesday after wound clinic visit as she does drive a long distance to get here. Her pain is well controlled with the current medication regimen. I spoke with the patient about the treatment plan and she is understanding. We will call her tomorrow morning to check on her status. She is welcome to contact our assistant corporation counsel service if needed. (3) Status post insertion of intrathecal pump:
[2019-07-06] MEDS ORDERED: cefTRIAXone SODIUM 2,000 MG in DEXTROSE 5% 50 ML IV SCH (18:00)
[2019-07-06] MEDS ORDERED: MoRPHine SULFATE CR 15 MG TABCR PO SCH (18:45)
[2019-07-07] MEDS ORDERED: VANCOMYCIN TROUGH ONE (09:30)
--- NOTE | 2019-07-08 04:30 | Billing Data ---
Date of Service July 08, 2019 Coding Level of Care Code 04334 OBS Care - Level 2
== END 2019-07-06 17:53 | disposition home health service (06) ==
LOC: 2N 12:45 → ASU 12:45

== ENCOUNTER 2022-06-02 05:48 | Observation (INO) ==
--- NOTE | 2022-03-31 10:22 | PAT Medication Instructions ---
Medication Instructions Date of Service March 31, 2022 Home Medications Medication Instructions Recorded naloxone 4 mg/actuation nasal 1 spray intranasal Q2M PRN opioid 10/02/20 spray (Narcan) overdose #2 ea morphine 30 mg tablet,extended 30 mg PO Q12H #60 tabs 03/18/22 release multivitamin 1 cap PO QAM psyllium husk 0.4 gram capsule (Fiber (psyllium husk)) 1.6 gm PO QAM atorvastatin 10 mg tablet 10 mg PO QPM ascorbic acid (vitamin C) 500 mg tablet (Vitamin C) 1,000 mg PO QAM escitalopram oxalate 10 mg tablet (Lexapro) 10 mg PO HS naloxone 4 mg/actuation nasal spray (Narcan) 1 spray intranasal Q2M PRN opioid overdose amlodipine 5 mg tablet 5 mg PO QAM calcium 500 mg tablet 500 mg PO 3XWK lisinopril 20 mg-hydrochlorothiazide 25 mg tablet 1 tab PO QAM potassium chloride 10 mEq capsule,extended release 10 meq PO QAM polyethylene glycol 3350 17 gram/dose oral powder (Miralax) 17 g PO QAM morphine 30 mg tablet,extended release 30 mg PO Q12H ibuprofen 800 mg tablet 800 mg PO Q6H PRN Breakthrough Pain levothyroxine 50 mcg tablet 50 mcg PO QAM Continue as directed naloxone 4 mg/actuation nasal spray (Narcan) 1 spray intranasal Q2M PRN opioid overdose (if needed) ASK your surgeon for instructions ibuprofen 800 mg tablet 800 mg PO Q6H PRN Breakthrough Pain DO NOT take the morning of surgery multivitamin 1 cap PO QAM psyllium husk 0.4 gram capsule (Fiber (psyllium husk)) 1.6 gm PO QAM ascorbic acid (vitamin C) 500 mg tablet (Vitamin C) 1,000 mg PO QAM calcium 500 mg tablet 500 mg PO 3XWK lisinopril 20 mg-hydrochlorothiazide 25 mg tablet 1 tab PO QAM potassium chloride 10 mEq capsule,extended release 10 meq PO QAM polyethylene glycol 3350 17 gram/dose oral powder (Miralax) 17 g PO QAM Take morning of surgery With a small sip of water, OTHERWISE NOTHING TO EAT OR DRINK AFTER MIDNIGHT: amlodipine 5 mg tablet 5 mg PO QAM morphine 30 mg tablet,extended release 30 mg PO Q12H levothyroxine 50 mcg tablet 50 mcg PO QAM Take evening before surgery atorvastatin 10 mg tablet 10 mg PO QPM escitalopram oxalate 10 mg tablet (Lexapro) 10 mg PO HS morphine 30 mg tablet,extended release 30 mg PO Q12H Other Notes If you have any questions please call us at [phone] or [phone] or [phone] or [phone]
--- NOTE | 2022-05-28 08:36 | Anesthesiology Consultation ---
Date of Service May 28, 2022 Assessment & Plan (1) Encounter for pre-operative examination: Chart Review Chart Review: Acceptable Risk for Surgery (pending DOS PRP ) and Patient NOT seen in Pre Admission Testing - Check BSG AM DOS - Check PRP DOS (not done preoperatively) -COVID screening: Per PAT nursing assessment on 05/27/22. No known COVID-19 positive contacts or current COVID-19 related symptoms. Travel screen negative. Patient vaccinated for Covid. At surgeon discretion if preop Covid testing being done. Removal of the drug intrathecal pain pump and placement of wound vac 07/05/19= Done under [facility] with Grade 1 view (cords clear) with MAC ## and ETT #7.0. Atraumatic attempt x 1 History Surgery Operation Date: 06/02/22 07:30 Proposed Procedures p Implantation of Drug Administration Pain Pump and Catheter Placement - Arturo Jorge MD, FIPP Height/Weight Height: 5 ft 5 in Weight: 92.533 kg Allergies Allergy/AdvReac Type Severity Reaction Status Date / Time gabapentin Allergy Intermediate Chest pain Verified 05/27/22 15:18 cephalexin AdvReac Intermediate Elevated BP Verified 05/27/22 15:18 Medications Home Medications Medication Instructions Recorded Confirmed Last Taken multivitamin 1 cap PO QAM 02/22/18 05/27/22 07/04/19 08:00 psyllium husk 0.4 gram capsule 1.6 gm PO QAM 04/06/18 05/27/22 07/04/19 08:00 (Fiber (psyllium husk)) atorvastatin 10 mg tablet 10 mg PO QPM 05/16/18 05/27/22 07/04/19 21:00 ascorbic acid (vitamin C) 500 mg 1,000 mg PO QAM 10/06/18 05/27/22 07/04/19 08:00 tablet (Vitamin C) escitalopram oxalate 10 mg tablet 10 mg PO HS 02/29/20 05/27/22 Unknown (Lexapro) naloxone 4 mg/actuation nasal 1 spray intranasal Q2M PRN opioid 10/02/20 05/27/22 Unknown spray (Narcan) overdose #2 ea amlodipine 5 mg tablet 5 mg PO QAM 04/18/21 05/27/22 Unknown calcium 500 mg tablet 500 mg PO 3XWK 04/18/21 05/27/22 Unknown lisinopril 20 1 tab PO QAM 04/18/21 05/27/22 Unknown mg-hydrochlorothiazide 25 mg tablet potassium chloride 10 mEq 10 meq PO QAM 04/18/21 05/27/22 Unknown capsule,extended release polyethylene glycol 3350 17 17 g PO QAM 10/23/21 05/27/22 Unknown gram/dose oral powder (Miralax) ibuprofen 800 mg tablet 800 mg PO Q6H PRN Breakthrough Pain 03/30/22 05/27/22 Unknown levothyroxine 50 mcg tablet 50 mcg PO QAM 03/30/22 05/27/22 Unknown morphine 30 mg tablet,extended 30 mg PO Q12H #60 tabs 05/15/22 05/27/22 Unknown release Past Medical History Medical History (Updated 05/28/22 @ 08:27 by Katerine Peraza PA-C) Anxiety Borderline diabetes Diet controlled Chronic interstitial cystitis Deep vein thrombosis LE DVT (40+ years ago)- AC x1 month, no issues since Degenerative disc disease Dyslipidemia Glaucoma History of COVID-19 Dx 02/2021 (tested at PCP office, granddaughter was positive contact) > Symptoms at time of: fatigue, chest pain, dyspnea; did require hospitalization at [facility] and oxygenation > symptoms resolved/oxygen discontinued. Hypertension Hypothyroidism Lumbar post-laminectomy syndrome Mitral valve prolapse Follows with [facility] Cardiology Only mild MR noted on 07/2021 ECHO Obesity Psoas mass Restless leg syndrome Past Family History Family History Mother FHx: pancreatic cancer Father Family history of diabetes mellitus Other No family history of adverse response to anesthesia Past Surgical History Surgical History Fusion of spine Lumbar x1 History of appendectomy History of cholecystectomy History of colonoscopy History of laminectomy x2 History of lumbar surgery Multiple (+ nerve damage repair) History of open reduction and internal fixation (ORIF) procedure Right wrist History of partial hysterectomy History of tooth extraction S/P BSO (bilateral salpingo-oophorectomy) S/P excision of lipoma S/P exploratory laparotomy Benign tumor excision (abdominal) S/P thyroid biopsy Status post insertion of intrathecal pump Intrathecal pump replacement (2015) Intrathecal catheter replacement (2019) Removal of intrathecal pain pump + placement of wound vac (07/05/19): Grade 1 view, MAC#3, ETT 7.0 at [facility] Status post surgery pain pump removal Social History Smoking Status: Never smoker Do You Dip or Chew Tobacco: No Hx Alcohol Use: No Hx Substance Use: No substance use type: does not use Testing Laboratory Results 05/20/22= WBC: 5.3 H/H: 15.9/48.2 PLATELETS: 172 UA: Negative Electrocardiogram Date: 07/01/21 Findings: + SB @ (49 bpm) Nonspecific T wave abnormality When compared to EKG from April 17, 2021no significant changes found per cardio Chest X-Ray Date: 05/20/22 Findings: + NAD Echocardiogram Date: 08/14/21 EF: 60-65% LV Function: normal RWMA: + none Mild MR Stress Test Date: 08/14/21 Type: nuclear Myocardial perfusion appears normal following pharmacologic stress with regadenoson. No reversible or fixed ischemia seen. LV systolic function is normal following Lexiscan regadenoson stress. Ejection fraction is normal. Other Testing Holter monitor 03/09/22= 48-hour Holter monitor recording revealed sinus rhythm. Heart rate ranging 42-91 bpm and average heart rate 58 bpm. The patient has bradycardia. Rare atrial and ventricular premature complexes noted.
--- NOTE | 2022-05-29 09:43 | History & Physical Report ---
Date of Service May 29, 2022 Assessment & Plan (1) Lumbar post-laminectomy syndrome: (2) Wound dehiscence: (3) History of lumbar surgery: Plan Patient is reporting some pain relief with the current medication regimen of MS Contin 30mg twice daily but with side effect of pruritus. Pain was better controlled with the intrathecal pump and catheter delivery system containing Dilaudid and Clonidine. It has been 2 years since wound dehiscence and patient does request reimplantation. She is scheduled on 06/02/22 for reimplantation of the intrathecal pump and catheter delivery system. Risks and benefits were reviewed with the patient. Procedure was explained to the patient and she would like to proceed with the surgical procedure. History of Present Illness Primary Care Provider: NO PCP Mrs. Velasquez is a 71-year-old female with a significant history of lumbar postlaminectomy syndrome. She has received multiple lumbar surgeries since 1976. Her pain is located in the low back and in the legs in a nondermatomal pattern. She did have an intrathecal pump and catheter delivery system implanted previously which contained Dilaudid and clonidine which did adequately control her chronic back pain for many years. She did have the intrathecal pump replaced with subsequent wound dehiscence and explantation July 2019. Since explantation she has been on oral MS Contin 30 mg twice daily with fair pain control. MS Contin does cause pruritus so she does take Benadryl daily. She denies any bowel/bladder incontinence, saddle anesthesia, foot drop, leg weakness, falls. Case discussed with Dr. Jorge Allergies Allergy/AdvReac Type Severity Reaction Status Date / Time gabapentin Allergy Intermediate Chest pain Verified 05/27/22 15:18 cephalexin AdvReac Intermediate Elevated BP Verified 05/27/22 15:18 Home Medications Medication Instructions Recorded Confirmed Type multivitamin 1 cap PO QAM 02/22/18 05/27/22 History psyllium husk 0.4 gram capsule 1.6 gm PO QAM 04/06/18 05/27/22 History (Fiber (psyllium husk)) atorvastatin 10 mg tablet 10 mg PO QPM 05/16/18 05/27/22 History ascorbic acid (vitamin C) 500 mg 1,000 mg PO QAM 10/06/18 05/27/22 History tablet (Vitamin C) escitalopram oxalate 10 mg tablet 10 mg PO HS 02/29/20 05/27/22 History (Lexapro) naloxone 4 mg/actuation nasal 1 spray intranasal Q2M PRN opioid 10/02/20 05/27/22 Rx spray (Narcan) overdose #2 ea amlodipine 5 mg tablet 5 mg PO QAM 04/18/21 05/27/22 History calcium 500 mg tablet 500 mg PO 3XWK 04/18/21 05/27/22 History lisinopril 20 1 tab PO QAM 04/18/21 05/27/22 History mg-hydrochlorothiazide 25 mg tablet potassium chloride 10 mEq 10 meq PO QAM 04/18/21 05/27/22 History capsule,extended release polyethylene glycol 3350 17 17 g PO QAM 10/23/21 05/27/22 History gram/dose oral powder (Miralax) ibuprofen 800 mg tablet 800 mg PO Q6H PRN Breakthrough Pain 03/30/22 05/27/22 History levothyroxine 50 mcg tablet 50 mcg PO QAM 03/30/22 05/27/22 History morphine 30 mg tablet,extended 30 mg PO Q12H #60 tabs 05/15/22 05/27/22 Rx release Past Med/Surg History Medical History (Updated 05/29/22 @ 09:39 by Beatriz Anderson PA-C) Anxiety Borderline diabetes Diet controlled Chronic interstitial cystitis Deep vein thrombosis LE DVT (40+ years ago)- AC x1 month, no issues since Degenerative disc disease Dyslipidemia Glaucoma History of COVID-19 Dx 02/2021 (tested at PCP office, granddaughter was positive contact) > Symptoms at time of: fatigue, chest pain, dyspnea; did require hospitalization at [facility] and oxygenation > symptoms resolved/oxygen discontinued. Hypertension Hypothyroidism Mitral valve prolapse Follows with [facility] Cardiology Only mild MR noted on 07/2021 ECHO Obesity Psoas mass Restless leg syndrome Surgical History Fusion of spine Lumbar x1 History of appendectomy History of cholecystectomy History of colonoscopy History of laminectomy x2 History of lumbar surgery Multiple (+ nerve damage repair) History of open reduction and internal fixation (ORIF) procedure Right wrist History of partial hysterectomy History of tooth extraction S/P BSO (bilateral salpingo-oophorectomy) S/P excision of lipoma S/P exploratory laparotomy Benign tumor excision (abdominal) S/P thyroid biopsy Status post insertion of intrathecal pump Intrathecal pump replacement (2016) Intrathecal catheter replacement (2019) Removal of intrathecal pain pump + placement of wound vac (07/05/19): Grade 1 view, MAC#3, ETT 7.0 at [facility] Status post surgery pain pump removal Family History Mother FHx: pancreatic cancer Father Family history of diabetes mellitus Other No family history of adverse response to anesthesia Social History Smoking Status: Never smoker Second Hand Exposure: No; Hx Alcohol Use: No Hx Substance Use: No Preferred Language: Pashto Communication Ability: Effective Visual Impairment: Limited Hearing Ability: Normal Assistant Wrestling Coach Required: No Beliefs That Will Affect Care: Zoroastrian Zoroastrian Beliefs: Jewish marital status: / marital status details: Has 2 adult children Current Living Situation: Alone Current Living Situation Comment: 01/2020 current occupational status: disabled current occupation: Previously employed by [employer] Feels Safe at Home: Yes Assistive Devices: Glasses Review of Systems Review of Systems: All systems reviewed & are unremarkable except as noted in HPI & below Physical Exam Physical Exam: General: Patient sitting quietly in exam room in no acute distress. Speech and thought process appropriate. Mood and affect appropriate. Cognition intact. Head: Normocephalic and atraumatic. ENT: Wearing mask. Eyes: Pupils equal round reactive to light. Neck: Supple without adenopathy and full range of motion. Chest: Nontender to palpation of the costosternal junction. Abdomen: Patient has multiple well-healed surgical incisions in the right lower quadrant. Back/spine: Well-healed nonsurgical incision at the thoracolumbar junction as well as over the lower lumbar spine. Moderate tenderness over the right lumbosacral junction which is nonfocal to the midline, facet joint or SI joint. No myofascial spasm or trigger points noted. Lower extremities: Positive straight leg raise bilaterally, right greater than left. Some generalized tenderness to palpation of the lower extremities bilaterally below the level the knee in a nondermatomal pattern. Strength testing 4+/5 throughout without focal deficit. Sensation intact without deficit. No evidence of dysesthesia, allodynia or hyperpathia response. Neurologic: Cranial nerves grossly intact. Ambulatory function slightly guarded.
[2022-06-02] MEDS ORDERED: CLINDA 900 MG **Premixed Bag IV SCH (06:00)
[2022-06-02] MEDS ORDERED: LR 15ML/HR IV SCH (06:00)
[2022-06-02] MEDS ORDERED: PROPOFOL IV EMULSION 10 MG/ML 20 ML VIAL IV ONE (06:45)
[2022-06-02] MEDS ORDERED: MIDAZOLAM HCL 1 MG/ML 2ML VIAL ONE (06:45)
[2022-06-02] MEDS ORDERED: ONDANSETRON INJ 2 MG/ML 2 ML VIAL ONE ×2 (06:45→09:27)
[2022-06-02] MEDS ORDERED: LIDOCAINE 2% 2 ML VIAL/AMP(20MG/ML) INFIL ONE (06:45)
[2022-06-02] MEDS ORDERED: ROCURONIUM BROMIDE 10 MG/ML 5 ML VIAL IV ONE (06:45)
[2022-06-02] MEDS ORDERED: fentaNYL citrate 100 MCG/2 ML VIAL ONE (06:45)
[2022-06-02] MEDS ORDERED: DexMEDEtomidine HCL IV 100 MCG/ML VIAL IV ONE (06:51)
[2022-06-02] MEDS ORDERED: LIDOCAINE 2%/EPINEPHRINE 1:100,000 20ML INFIL ONE (06:58)
[2022-06-02] MEDS ORDERED: HYDROmorphone INJ 1 MG/ML SYRINGE IV PRN (07:00)
[2022-06-02] MEDS ORDERED: ATROPINE SULFATE 0.1 MG/ML 10ML SYR IV PRN (07:00)
[2022-06-02] MEDS ORDERED: ePHEDrine sulfate 50 MG/ML AMP IV PRN (07:00)
[2022-06-02] MEDS ORDERED: ONDANSETRON INJ 2 MG/ML 2 ML VIAL IV PRN ×2 (07:00→10:54)
[2022-06-02 07:32] LABS: BUN Creatinine Ratio 31.1 (10-20); Calcium 9.8 mg/dl (8.5-10.1); Creatinine Clr Calc Pharmacy 76.5 ml/min; Est GFR (African American) 93.2 ml/min; Est GFR (Non-African American) 80.4 ml/min; Potassium 3.8 mmol/L (3.5-5.1)
--- NOTE | 2022-06-02 07:49 | History & Physical Bridge Note ---
Date of Service June 02, 2022 History & Physical Bridge Note History & Physical Bridge Note Eulalio Velasquez is a 71 -year-old male/female with a history of chronic post syndrome with chronic pain. She had a previously implanted intrathecal drug delivery system with infusion of hydromorphone and clotting mixture. She received excellent efficacy from this but the pump and the catheter were removed due to an infection at the pump site. She has been maintained on MS Contin 30 mg twice daily with some efficacy since remove the pump. Patient is scheduled today for insertion of intrathecal catheter and pump to provide better efficacy. Patient's past medical history, surgical history, medication and allergy list has been reviewed and no changes noted since his last history and physical examination performed. Review of systems is negative for any cardiac, pulmonary, GI, , endocrine or acute neurological complaints other than what is listed in the HPI section. Physical exam: GENERAL: Patient appears her stated age. Speech and cognition is intact. Mood and affect is appropriate. Sensorium is clear. She is in no acute distress. HEAD: Normocephalic; atraumatic. EYES: Pupils are round, equal, and reactive to light. EOM intact. Mucous membranes moist and pink. No oral lesions noted. ENT: No external ear discharge or lesions. No rhinorrhea or epistaxis. No mucosal lesions. NECK: Full ROM. Trachea is midline. No thyromegaly. No cervical lymphadenopathy. Carotids without bruit. CARDIAC: Regular rate and rhythm. [No murmur or gallops noted.] CHEST: Regular chest respiration and excursion. Lungs are clear to auscultation. ABDOMEN: No organomegaly appreciated. Bowel sounds are normal. Multiple scars midline and right lower quadrant of the abdomen. EXTREMITIES: Full ROM and +5 strength of bilateral lower extremities. Distal sensation and pulses intact bilaterally. BACK: Increased lumbar lordosis with midline surgical scars. Reduced range of motion. NEURO: Cranial nerves II-XII grossly intact with no focal deficits noted. Deep tendon reflexes in the upper and the lower extremities are symmetrical. Sensation and motor strength testing is unremarkable. SKIN: No lesions, erythema, or rashes noted. ASSESSMENT: Chronic pain due to lumbar postlaminectomy syndrome. Excellent efficacy from previously implanted intrathecal delivery system that was explanted infection. RECOMMENDATIONS: Insertion of intrathecal catheter and drug delivery system depression better efficacy. [History reviewed, examination performed, pertinent laboratory and imaging studies reviewed. No contraindications noted to proceeding with the proposed procedure.] Potential risks including infection, bleeding, hematoma, nerve injury, persistent back pain, injury to the spinal cord, dural puncture with persistent cerebrospinal fluid leak, post dural puncture headache which may r equire additional interventional procedures to treat were discussed with the patient in detail. Alternative treatments were also discussed. Patient's questions were answered and gives informed consent to proceed with the proposed procedure.
[2022-06-02] MEDS ORDERED: HYDROmorphone INJ 2 MG/ML SYR/VIAL ONE (09:20)
[2022-06-02] MEDS ORDERED: DEXAMETHASONE SOD INJ 4 MG/ML VIAL ONE (09:27)
[2022-06-02] MEDS ORDERED: GLYCOPYRROLATE 0.2 MG/ML VIAL ONE (09:27)
[2022-06-02] MEDS ORDERED: NEOSTIGMINE METHYLSULFATE 1 MG/ML 10ML VIAL ONE (09:27)
[2022-06-02] MEDS: HYDROmorphone PAIN PUMP--Supplied by Pain Clinic IT SCH (09:46)
[2022-06-02] MEDS ORDERED: IOPAMIDOL INJ 61% 15 ML VIAL INJ ONE (09:47)
--- NOTE | 2022-06-02 10:39 | Operative Report ---
Post Operative Report Pre & Post Diagnosis Operation Date: 06/02/22 07:30 Pre-Op Diagnosis: Lumbar Post Laminectomy Syndrome, Restless Leg Syndrome Post-Op Diagnosis: Lumbar Post Laminectomy Syndrome, Restless Leg Syndrome I identified the patient and participated in the time-out.: Yes Procedure Operation Date: 06/02/22 07:30 Actual Procedures p Implantation of Drug Administration Pain Pump and Catheter Placement(Left) - Arturo Jorge MD, [facility] Surgeon Lashonda Jernigan DO Supervisor Publications Production Arturo Jorge MD Estimated Blood Loss 40 Findings Consistent with Post-Op Diagnosis Fluids per anes record Specimens none Drains none Anesthesia Type General Complications none Disposition Accompanied Patient To Recovery: No Disposition: Recovery Room Description of Procedure INTRATHECAL PUMP AND CATHETER INSERTION, CATHETER ACCESS PORT STUDY, POSTPROCEDURE REPROGRAMMING AND ANALYSIS PREOPERATIVE DIAGNOSIS: Intractable pain secondary to lumbar post-laminectomy syndrome and restless leg syndrome POSTOPERATIVE DIAGNOSIS: Same. COMPLICATIONS: None. SURGEON: Dr. Lashonda Jernigan and Dr. Arturo Jorge EBL: 40ml ANESTHESIA: General. MATERIAL FORWARDED TO THE LAB: None. INDICATIONS: The patient had a previous history of dehiscence of her intrathecal hydromorphone pump requiring explantation. She returns today for reimplantation of a new intrathecal hydromorphone pump. The patient was explained the risks, benefits, alternatives of the procedure and agreed to proceed as above. Informed consent was obtained and witnessed. A time out was performed after the patient was brought into the Operating Room. Antibiotics were given. The patient was then induced with general anesthesia without co mplications and was placed in right lateral decubitus position. Fluoroscopy was utilized throughout the procedure. The skin was prepped with duraprep and betadine and draped in sterile fashion. An 18-gauge spinal needle was used to gain access to the CSF through the L2-3 interspace. No heme was noted. Positive CSF flow was obtained and the intrathecal catheter was passed to the T10 vertebral body. The stylet was then removed. The intrathecal space was confirmed with [id number]-[id number] injected into the catheter under live fluoroscopy and digital subtraction imaging. A 1-1/2 inch midline incision was made surrounding the intrathecal needle. Hemostasis was achieved. The intrathecal catheter was secured to the fascia with 2 purse string 0 silk ties. Then the spinal needle was removed and a [employer] butterfly anchor to secure the catheter to the underlying supraspinous ligament was utilized. There was positive CSF flow from the intrathecal catheter after anchoring of the catheter to the fascia. Then in the right lower quadrant a pocket for the intrathecal pump was made and hemostasis was achieved. A passer was used to transfer the intrathecal pump catheter underneath the skin and subcutaneous tissues through to the pocket incision. After transfer of the end of the catheter to the pocket incision aspiration of the intrathecal catheter revealed positive CSF flow free flowing. Both pocket and midline axial thoracic incisions were irrigated with 3 bulb syringes full of sterile normal saline with bacitracin and aqeuous idophor. Hemostasis was achieved. The intrathecal pump was filled was rinsed and filled with morphine 1mg/ml per protocol. The intrathecal catheter was not trimmed. The sutureless connector was connected to the end the intrathecal pump and aspiration from of the end of the catheter was free-flowing. It was then connected to the intrathecal pump per protocol. The intrathecal pump was anchored in the pocket with 4 0 Prolene sutures. No complications were noted after the intrathecal pump was placed inside the pocket. The skin and subcutaneous tissues of both incisions were closed with O-Stratafix sutures, then 3-0 Stratafix antibiotic coated sutures, followed by dermabond Prineo dressing. The skin was cleansed and dried and 4 x 4's and Tegaderms were placed for closure dressings. An abdominal binder was placed on the patient. No complications were noted throughout the procedure. The patient tolerated the procedure and general anesthesia well and was extubated at the end of the procedure. The patient was then transferred back to the [facility] and was taken to the recovery room in stable condition. The patient will follow up with our clinic at 7 days for a wound check and further care. . Pump size inserted: 20ml Level of catheter: T10 Catheter was not trimmed, placed into right lower quadrant Medication placed in pump: Hydromorphone 1mg/ml to run at 0.05mg/day I attest to the content of the Intraoperative Record and any orders documented therein. Any exceptions are noted below.
[2022-06-02] MEDS ORDERED: diphenhydrAMINE Capsule 25 MG CAP PO PRN (10:54)
[2022-06-02] MEDS ORDERED: ACETAMINOPHEN 500 MG TAB PO PRN (10:54)
[2022-06-02] MEDS ORDERED: NALOXONE HCL 0.4 MG/1 ML VIAL/CARP IV PRN (10:54)
[2022-06-02] MEDS: fentaNYL citrate 100 MCG/2 ML VIAL IV PRN ×2 (11:10→11:15)
[2022-06-02] MEDS ORDERED: NALOXONE NASAL SPRAY 4 MG ER HOMEPACK PRN (12:25)
--- NOTE | 2022-06-02 12:47 | Anesthesiology Progress Note ---
Date of Service June 02, 2022 Anesthesia Post Procedure Vital Signs Vital Signs: Temp Pulse Pulse Resp BP Pulse Ox O2 Del Method 06/02/22 12:15 59 L 12 154/63 H 92 Nasal Cannula 06/02/22 12:00 58 L 14 152/57 H 94 Nasal Cannula 06/02/22 11:45 58 L 14 150/71 H 95 Nasal Cannula 06/02/22 11:35 36.4 C L 63 12 160/67 H 97 Nasal Cannula 06/02/22 11:25 58 L 10 L 154/71 H 93 Nasal Cannula 06/02/22 11:15 65 13 135/82 98 Room Air 06/02/22 11:05 66 17 163/71 H 94 Oxymask 06/02/22 10:55 67 13 148/74 H 97 Oxymask 06/02/22 10:49 36.2 C L 74 16 165/78 H 99 Oxymask 06/02/22 06:23 37 C 63 22 179/71 H 96 Room Air O2 Flow Rate 06/02/22 12:15 2 06/02/22 12:00 2 06/02/22 11:45 2 06/02/22 11:35 2 06/02/22 11:25 2 06/02/22 11:15 06/02/22 11:05 5 06/02/22 10:55 5 06/02/22 10:49 5 06/02/22 06:23 Pain Intensity Bilateral Leg: Pain Intensity: 5 Abdomen: Pain Intensity: 3 Back: Pain Intensity: 3 Transfer of Care Handoff Completed per policy Notes Mental Status: alert / awake / arousable and participated in evaluation Patient Amnestic to Procedure: Yes Nausea / Vomiting: adequately controlled Pain: adequately controlled Airway Patency, RR, SpO2: stable & adequate BP & HR: stable & adequate Hydration State: stable & adequate Anesthetic Complications: no major complications apparent and Pt Satisfied with anesthetic care
[2022-06-02] MEDS ORDERED: CALCIUM CARBONATE 500 MG CHEWABLE TAB PO PRN (13:04)
[2022-06-02] MEDS: HYDROmorphone INJ 0.5 MG/0.5 ML SYR IV PRN (13:24)
[2022-06-02] MEDS: amLODIPine BESYLATE 5 MG TAB PO SCH (14:26)
[2022-06-02] MEDS: MoRPHine SULFATE IR 15 MG TAB (IMMEDIATE RELEASE) PO PRN (16:39)
--- NOTE | 2022-06-02 16:47 | Hospitalist Consultation ---
Date of Consultation June 02, 2022 Assessment & Plan (1) Hypertension: Continue Norvasc 5mg Continue Lisinopril/HCTZ 20/25 daily BMP in AM BP stable currently 135/77 (2) Dyslipidemia: Continue Lipitor 10mg daily (3) Hypothyroidism: Continue Levothyroxine 50mcg daily (4) Status post insertion of intrathecal pump: Per pain management Doing well post operatively (5) Degenerative disc disease: S/P pain pump placement (6) Mitral valve prolapse: Follows with [facility] Only mild mitral valve regurgitation noted on 07/2021 ECHO EF was 60-65% with no RWMA (7) History of lumbar surgery: History of multiple back surgeries since 1976 History of degenerative disc disease (8) Anxiety: Continue Lexapro 10mg daily (9) Borderline diabetes: Per patient she was not aware that she had borderline diabetes She stated her father had Diabetes She denies ever being on any diabetic medications Suggest Carb consistent diet and will get HgA1C with AM labs Plan Discussed good bowel regimen to avoid constipation Currently ordered Colace, Psyllium Fiber and also miralax as needed Continue RAVINDRA carlose and SCDs Will check bladder scan, patient states she feels she cannot urinate Also check urinalysis Supervising Physician Co-Signing Physician Notes PA Supervision Note: I personally saw and examined the patient. I verified all rosado points and agree with DARVIN Davis with the following exceptions and/or additions: Summary of present stay: 71 yo F admitted for implantation of intrathecal pain pump, consult requested by Dr. Jernigan for post-op chronic med management. Pain doing well post-op, concerns of feeling as if she has to urinate however cannot. Some left back pain, but "not bad". Some headache post-op. No other complaints. Physical exam: Vitals reviewed Gen: Alert and oriented, NAD CV: RRR no mgr nl S1S2 Pulm: CTAB no wcr Abd: +BS soft NT ND no masses Ext: no edema, 2+ DP pulses Skin: no rashes, warm/dry Neuro: No focal neurologic deficits Labs, Rads reviewed Plan: Chronic pain: s/p intrathecal pain pump 1/3, post-op surgical care by Pain Management team. CBC post-op for eval of blood loss. Urinary urgency: UA ordered. Bladder scan as well. Could be due to anesthesia, straight cath as necessary. Abx if evidence of UTI. HTN: continue amlodipine, lisinopril/HCTZ. Otherwise plan as detailed above. History of Present Illness Reason for Consultation: medical management Requesting Physician: Dr Lashonda Jernigan Attending Physician: Arturo Jorge MD, [facility] History of Present Illness Patient is a 71 year old female with a past medical history of HTN, Hyperlipidemia, anxiety, depression, hypothyroidism, borderline diabetes (diet controlled) and lumbar post-laminectomy syndrome with previous wound dehiscence. Patient states she has had multiple back surgeries since 1976. Patient had an intrathecal pump and catheter delivery system implanted previously which contained Dilaudid and clonidine which did adequately control her chronic back pain for many years. She did have an intrathecal pump replaced in 2019 and shortly after placement she unfortunately sustained a fall. After the fall, she had subsequent wound dehiscence and explantation in July 2019. Since explantation she has been on oral MS Contin 30 mg twice daily with fair pain control, but states the MS Contin caused pruritus and patient needed to take Benadryl daily. She denies any bowel/bladder incontinence, saddle anesthesia, foot drop, leg weakness, falls. Patient had implantation of pain pump and catheter placement on the left today. Patient denies any abdominal pain, chest pain, SOB, Nausea or vomiting. Her only complaint is a mild headache. She has no changes in her vision. Patient denies any urine or bowel incontinence. She states her last BM was yesterday and was normal. Allergies Allergy/AdvReac Type Severity Reaction Status Date / Time gabapentin Allergy Intermediate Chest pain Verified 06/02/22 06:07 cephalexin AdvReac Intermediate Elevated BP Verified 06/02/22 06:07 Home Medications Medication Instructions Recorded Confirmed Type multivitamin 1 cap PO QAM 02/22/18 06/02/22 History psyllium husk 0.4 gram capsule 1.6 gm PO QAM 04/06/18 06/02/22 History (Fiber (psyllium husk)) atorvastatin 10 mg tablet 10 mg PO QPM 05/16/18 06/02/22 History ascorbic acid (vitamin C) 500 mg 1,000 mg PO QAM 10/06/18 06/02/22 History tablet (Vitamin C) escitalopram oxalate 10 mg tablet 10 mg PO HS 02/29/20 06/02/22 History (Lexapro) naloxone 4 mg/actuation nasal 1 spray intranasal Q2M PRN opioid 10/02/20 06/02/22 Rx spray (Narcan) overdose #2 ea amlodipine 5 mg tablet 5 mg PO QAM 04/18/21 06/02/22 History calcium 500 mg tablet 500 mg PO 3XWK 04/18/21 06/02/22 History lisinopril 20 1 tab PO QAM 04/18/21 06/02/22 History mg-hydrochlorothiazide 25 mg tablet potassium chloride 10 mEq 10 meq PO QAM 04/18/21 06/02/22 History capsule,extended release polyethylene glycol 3350 17 17 g PO QAM 10/23/21 06/02/22 History gram/dose oral powder (Miralax) ibuprofen 800 mg tablet 800 mg PO Q6H PRN Breakthrough Pain 03/30/22 06/02/22 History levothyroxine 50 mcg tablet 50 mcg PO QAM 03/30/22 06/02/22 History morphine 30 mg tablet,extended 30 mg PO Q12H #60 tabs 05/15/22 06/02/22 Rx release Patient History Medical History Anxiety Borderline diabetes Diet controlled Chronic interstitial cystitis Deep vein thrombosis LE DVT (40+ years ago)- AC x1 month, no issues since Degenerative disc disease Dyslipidemia Glaucoma History of COVID-19 Dx 02/2021 (tested at PCP office, granddaughter was positive contact) > Symptoms at time of: fatigue, chest pain, dyspnea; did require hospitalization at [facility] and oxygenation > symptoms resolved/oxygen discontinued. Hypertension Hypothyroidism Mitral valve prolapse Follows with [facility]iology Only mild MR noted on 07/2021 ECHO Obesity Psoas mass Restless leg syndrome Surgical History Fusion of spine Lumbar x1 History of appendectomy History of cholecystectomy History of colonoscopy History of laminectomy x2 History of lumbar surgery Multiple (+ nerve damage repair) History of open reduction and internal fixation (ORIF) procedure Right wrist History of partial hysterectomy History of tooth extraction S/P BSO (bilateral salpingo-oophorectomy) S/P excision of lipoma S/P exploratory laparotomy Benign tumor excision (abdominal) S/P thyroid biopsy Status post insertion of intrathecal pump Intrathecal pump replacement (2016) Intrathecal catheter replacement (2019) Removal of intrathecal pain pump + placement of wound vac (07/05/19): Grade 1 view, MAC#3, ETT 7.0 at [facility] Status post surgery pain pump removal Family History Mother FHx: pancreatic cancer Father Family history of diabetes mellitus Other No family history of adverse response to anesthesia Social History Smoking Status: Never smoker Second Hand Exposure: No; Do You Dip or Chew Tobacco: No; Tobacco Cessation Education Requested by Patient: No Hx Alcohol Use: No Hx Substance Use: No Preferred Language: [place]an Communication Ability: Effective Visual Impairment: Limited Hearing Ability: Normal Heel Room Supervisor Required: No Beliefs That Will Affect Care: Mandaen Mandaen Beliefs: SYNAGOGUE marital status: / marital status details: Has 2 adult children Current Living Situation: Alone Current Living Situation Comment: 01/2020 current occupational status: disabled current occupation: Previously employed by [employer] Other Information That Helps Us Care for You: No Feels Safe at Home: Yes Safety Concerns: Feels Safe At This Time Assistive Devices: Glasses Review of Systems Constitutional: + anorexia; no fever, no chills and no weight loss Eyes: no blind spots, no diplopia, no eye pain and no photophobia Respiratory: no cough, no chest congestion, no dyspnea, no dyspnea on exertion and no hemoptysis Cardiovascular: no chest pain, no dyspnea and no calf pain Gastrointestinal: no abdominal pain, no nausea and no vomiting Musculoskeletal: + back pain; no muscle atrophy hx fracture right foot in past and has some swelling chronically in right foot Integumentary: no rash, no lesions and no new lesions Psychiatric: + anxiety; no hopelessness, no confusion and no hallucinations Physical Exam Constitutional: WD/WN, vitals as above ENMT: external ear and nose normal, oropharynx normal Neck: trachea midline, no thyromegaly Respiratory: normal respiratory effort, lungs clear to auscultation Cardiovascular: RRR, no murmur, no edema Gastrointestinal (Abdomen): normal bowel sounds, soft, nontender, no hepatosplenomegaly abdominal band in place Musculoskeletal: SCDs in place and RAVINDRA hose right leg Skin: no rashes, warm and dry Neurologic: patellar DTR's 2+ bilat, sensation intact and PERRL, EOMI, accommodation nl, no face palsy, no dysarthria Psychiatric: A+Ox3, euthymic affect Results & Data Results & Data ([facility]) Vital Signs (Past 12 Hours) Vital Signs Temp Pulse Pulse Resp BP Pulse Ox O2 Del Method 06/02/22 16:05 36.8 C 65 18 135/77 96 Nasal Cannula 06/02/22 15:30 36.4 C L 63 20 142/69 H 95 Nasal Cannula 06/02/22 14:30 65 14 170/80 H 94 Nasal Cannula 06/02/22 14:00 65 15 141/67 H 96 Nasal Cannula 06/02/22 13:30 68 15 138/76 97 Nasal Cannula 06/02/22 13:00 70 20 157/78 H 96 Nasal Cannula 06/02/22 12:45 59 L 14 144/73 H 93 Nasal Cannula 06/02/22 12:30 61 12 162/72 H 92 Nasal Cannula 06/02/22 12:15 59 L 12 154/63 H 92 Nasal Cannula 06/02/22 12:00 58 L 14 152/57 H 94 Nasal Cannula 06/02/22 11:45 58 L 14 150/71 H 95 Nasal Cannula 06/02/22 11:35 36.4 C L 63 12 160/67 H 97 Nasal Cannula 06/02/22 11:25 58 L 10 L 154/71 H 93 Nasal Cannula 06/02/22 11:15 65 13 135/82 98 Room Air 06/02/22 11:05 66 17 163/71 H 94 Oxymask 06/02/22 10:55 67 13 148/74 H 97 Oxymask 06/02/22 10:49 36.2 C L 74 16 165/78 H 99 Oxymask 06/02/22 06:23 37 C 63 22 179/71 H 96 Room Air O2 Flow Rate 06/02/22 16:05 2 06/02/22 15:30 2 06/02/22 14:30 2 06/02/22 14:00 2 06/02/22 13:30 2 06/02/22 13:00 2 06/02/22 12:45 2 06/02/22 12:30 2 06/02/22 12:15 2 06/02/22 12:00 2 06/02/22 11:45 2 06/02/22 11:35 2 06/02/22 11:25 2 06/02/22 11:15 06/02/22 11:05 5 06/02/22 10:55 5 06/02/22 10:49 5 06/02/22 06:23 Laboratory Results Abnormal lab results 06/02/22 06/02/22 Range/Units 06:10 06:59 BUN/Creatinine Ratio 31.1 H (10-20) Glucose 113 H (70-99(Fasting)) mg/dl POC Glucose 113 H (70-99) mg/dl PG Care Time/CCT Total # of Minutes Spent Total Time Spent with Patient: Total time spent is greater than 50% in coordination of care (as documented) at patient's floor/unit and/or counseling patient: Coding Level of Care Code OFFICE CONSULT LVL 3, 30 MIN Diagnoses Hypertension I10 Dyslipidemia E78.5 Hypothyroidism E03.9 Status post insertion of intrathecal pump Z98.890 Degenerative disc disease Mitral valve prolapse I34.1 History of lumbar surgery Z98.890 Anxiety F41.9 Borderline diabetes R73.03
[2022-06-02] MEDS ORDERED: ESCITALOPRAM OXALATE 10 MG TAB PO SCH (21:00)
[2022-06-02] MEDS ORDERED: ATORVASTATIN 10 MG TAB PO SCH (21:00)
[2022-06-02] MEDS ORDERED: PROCHLORPERAZINE 5 MG in SYRINGE 4 ML IV ONE (21:24)
[2022-06-02] MEDS: DOCUSATE SODIUM 100 MG CAP PO SCH (21:33)
[2022-06-03] MEDS: HYDROmorphone INJ 0.5 MG/0.5 ML SYR IV PRN (04:48)
[2022-06-03] MEDS: HYDROmorphone PAIN PUMP--Supplied by Pain Clinic IT SCH (05:21)
[2022-06-03] MEDS ORDERED: LEVOTHYROXINE SODIUM 50 MCG TABLET PO SCH ×2 (07:40→09:00)
[2022-06-03 07:46] LABS: Hematocrit (blood only) 41.1 % (34.1-44.9); Hemoglobin 14.5 g/dl (12.0-16.0); Mean Corpuscular Hemoglobin 31.7 pg (25.0-34.0); Mean Corpuscular Hgb Conc 35.3 g/dL (32.0-36.0); Mean Corpuscular Volume 89.7 fL (80.0-100.0); Mean Platelet Volume 10.1 fL (9.4-12.3); Platelet Count 208 K/uL (130-400); RDW Standard Deviation 45.6 fL (36.4-46.3); Red Blood Count 4.58 M/uL (3.93-5.22); White Blood Count 12.23 K/ul (4.8-10.8)
[2022-06-03 08:22] LABS: BUN Creatinine Ratio 29.8 (10-20); Calcium 9.1 mg/dl (8.5-10.1); Creatinine Clr Calc Pharmacy 99.5 ml/min; Est GFR (African American) 106.6 ml/min; Potassium 3.6 mmol/L (3.5-5.1)
--- NOTE | 2022-06-03 08:29 | Hospitalist Progress Note ---
Date of Service June 03, 2022 Assessment & Plan (1) Hypertension: Plan: Continue Norvasc 5mg Continue Lisinopril/HCTZ 20/25 daily BP stable 150/81 (mild incisional discomfort) (2) Dyslipidemia: Plan: Continue Lipitor 10mg daily (3) Hypothyroidism: Plan: Continue Levothyroxine 50mcg daily (4) Status post insertion of intrathecal pump: Plan: Per pain management Doing well post operatively (5) Degenerative disc disease: Plan: S/P pain pump placement (6) Mitral valve prolapse: Plan: Follows with [facility] Only mild mitral valve regurgitation noted on 07/2021 ECHO EF was 60-65% with no RWMA (7) History of lumbar surgery: Plan: History of multiple back surgeries since 1976 History of degenerative disc disease (8) Anxiety: Plan: Continue Lexapro 10mg daily (9) Borderline diabetes: Plan: Per patient she was not aware that she had borderline diabetes She stated her father had Diabetes She denies ever being on any diabetic medications Suggest Carb consistent diet and will get HgA1C with AM labs Plan Discussed good bowel regimen to avoid constipation Currently ordered Colace, Psyllium Fiber and also miralax as needed Continue RAVINDRA terrancee and SCDs Admission and Anticipated Discharge Date Admission Date: June 02, 2022 Supervising Physician Co-Signing Physician Notes I did not personally see or examine the patient. I reviewed chart and discussed case with DARVIN Davis and agree with the assessment and plan as above except as stated here: no changes. Subjective Patient is awake sitting up in bed. She tells me that she vomited x3 yesterday but no vomiting today. She did not feel like eating this AM and was nauseated but did not want any antiemetics. She felt like later she would be fine and would eat. She states she had a small formed bronw BM this AM. She denies any chest pain, SOB or abdominal pain. Review of Systems Constitutional: + anorexia; no fever, no chills and no weight loss Eyes: no blind spots, no diplopia, no eye pain and no photophobia Respiratory: no cough, no chest congestion, no dyspnea, no dyspnea on exertion and no hemoptysis Cardiovascular: no chest pain, no dyspnea and no calf pain Gastrointestinal: no abdominal pain, no nausea and no vomiting Musculoskeletal: + back pain; no muscle atrophy hx fracture right foot in past and has some swelling chronically in right foot Integumentary: no rash, no lesions and no new lesions Psychiatric: + anxiety; no hopelessness, no confusion and no hallucinations Physical Exam Constitutional: WD/WN, vitals as above ENMT: external ear and nose normal, oropharynx normal Neck: trachea midline, no thyromegaly Respiratory: normal respiratory effort, lungs clear to auscultation Cardiovascular: RRR, no murmur, no edema Gastrointestinal (Abdomen): normal bowel sounds, soft, nontender, no hepatosplenomegaly Skin: no rashes, warm and dry Neurologic: patellar DTR's 2+ bilat, sensation intact and PERRL, EOMI, accommodation nl, no face palsy, no dysarthria Psychiatric: A+Ox3, euthymic affect Results & Data Results & Data ([facility]) Vital Signs (Past 12 Hours) Vital Signs Temp Pulse Pulse Resp BP Pulse Ox O2 Del Method 06/03/22 07:34 36.4 C L 59 L 16 158/77 H 95 Room Air 06/03/22 07:15 57 L 06/03/22 03:32 36.9 C 62 20 159/74 H 93 Room Air 06/03/22 00:00 65 06/02/22 22:55 36.7 C 74 18 153/69 H 92 Room Air 06/02/22 22:47 63 Laboratory Results Abnormal lab results 06/03/22 06/03/22 06/03/22 Range/Units 07:17 07:17 07:17 WBC 12.23 H (4.8-10.8) K/ul Creatinine 0.57 L (0.6-1.2) mg/dl BUN/Creatinine Ratio 29.8 H (10-20) Glucose 120 H (70-99(Fasting)) mg/dl Hemoglobin A1c 6.1 H (4.5-5.6) % PG Care Time/CCT Total # of Minutes Spent Total Time Spent with Patient: Total time spent is greater than 50% in coordination of care (as documented) at patient's floor/unit and/or counseling patient: Coding Level of Care Code 33080 Office/OBS Consult Lvl 1 Diagnoses Hypertension I10 Dyslipidemia E78.5 Hypothyroidism E03.9 Status post insertion of intrathecal pump Z98.890 Degenerative disc disease Mitral valve prolapse I34.1 History of lumbar surgery Z98.890 Anxiety F41.9 Borderline diabetes R73.03
[2022-06-03] MEDS ORDERED: MULTIVITAMIN TAB PO SCH (09:00)
[2022-06-03] MEDS ORDERED: PSYLLIUM or GUAR GUM FIBER POWDER PACKET PO SCH (09:00)
[2022-06-03] MEDS ORDERED: ASCORBIC ACID 500 MG TAB PO SCH (09:00)
[2022-06-03] MEDS ORDERED: POLYETHYLENE (MIRALAX) 17 GM PACK PO SCH (09:00)
[2022-06-03] MEDS ORDERED: POTASSIUM CHLORIDE 10 MEQ TABCR PO SCH (09:00)
[2022-06-03] MEDS ORDERED: LISINOPRIL/HCTZ 20/25MG 1 TAB PO SCH (09:00)
--- NOTE | 2022-06-03 09:00 | Pain Management Progress Note ---
Date of Service June 03, 2022 Assessment & Plan (1) Lumbar post-laminectomy syndrome: (2) History of lumbar surgery: Plan 1. Dry dressing changes daily. 2. Continue to wear abdominal binder 24/7 x 4 weeks, then only during activity for an additional 4 weeks. 3. No dosage changes to the intrathecal pump were made today. 4. Take MS IR 15mg TID PRN breakthrough pain. SHe does have Narcan at home in case of opioid overdose. She is aware of signs of overdose. 5. Follow up appointments scheduled on 06/10/2022 at 1030 and 06/17/2022 at 1315. Admission and Anticipated Discharge Date Admission Date: June 02, 2022 Subjective Mrs. Velasquez is a 71-year-old female that is status post implantation of an intrathecal pump and catheter delivery system. She is reporting improved pain relief. The axial low back is pain free at this time. She does continue to experiencing a burning into the legs. She did vomit last evening. Since surgery she has taken MS IR 15mg once and Dilaudid IV 0.5mg x 2 with adequate relief. There is a frontal headache present which has been ongoing since prior to surgery. Headache is not positional. Pain is rated 4/10 currently. No side effects of constipation, urinary retention, drowsiness, dizziness, fevers. Case discussed with Dr. Lashonda Jernigan Physical Exam Physical Exam: GENERAL: This is a 71 year old female in no acute distress. HEAD/FACE: Normocephalic and atraumatic. EYES: No drainage or conjunctival injection. ENT: Nose without bleeding or discharge. Oral mucosa moist. NECK: Full ROM without apparent pain. No swelling or masses noted. RESPIRATORY: Patient with unlabored breathing. No signs of respiratory distress. CHEST/AXILLA: Chest movement symmetrical. No deformities noted. ABDOMEN/GI: Previous pump site in the RLQ is well healed. Pump site in the LLQ appears well. Prineo bandage in placed. New dry dressing applied. BACK: Moves without difficulty. Thoracolumbar incision appears well. Prineo bandage in place. Dry dressing applied. SKIN: Milnor, warm and dry. No rash noted. MS/EXTREMITY: No swelling, no deformities. Moving extremities appropriately. NEURO: Alert and appears oriented. Speech is fluent. Cranial Nerves are grossly intact. PSYCH: Alert, pleasant, affect is calm
--- NOTE | 2022-06-03 09:04 | Discharge Summary ---
Date of Service June 03, 2022 Admission HPI Per Admitting Provider Mrs. Velasquez is a 71-year-old female with a significant history of lumbar postlaminectomy syndrome. She has received multiple lumbar surgeries since 1976. Her pain is located in the low back and in the legs in a nondermatomal pattern. She did have an intrathecal pump and catheter delivery system implanted previously which contained Dilaudid and clonidine which did adequately control her chronic back pain for many years. She did have the intrathecal pump replaced with subsequent wound dehiscence and explantation July 2019. Since explantation she has been on oral MS Contin 30 mg twice daily with fair pain control. MS Contin does cause pruritus so she does take Benadryl daily. She denies any bowel/bladder incontinence, saddle anesthesia, foot drop, leg weakness, falls. Case discussed with Dr. Jorge Admission Exam (Per Admitting) Constitutional General: Patient sitting quietly in exam room in no acute distress. Speech and thought process appropriate. Mood and affect appropriate. Cognition intact. Head: Normocephalic and atraumatic. ENT: Wearing mask. Eyes: Pupils equal round reactive to light. Neck: Supple without adenopathy and full range of motion. Chest: Nontender to palpation of the costosternal junction. Abdomen: Patient has multiple well-healed surgical incisions in the right lower quadrant. Back/spine: Well-healed nonsurgical incision at the thoracolumbar junction as well as over the lower lumbar spine. Moderate tenderness over the right lumbosacral junction which is nonfocal to the midline, facet joint or SI joint. No myofascial spasm or trigger points noted. Lower extremities: Positive straight leg raise bilaterally, right greater than left. Some generalized tenderness to palpation of the lower extremities bilaterally below the level the knee in a nondermatomal pattern. Strength testing 4+/5 throughout without focal deficit. Sensation intact without deficit. No evidence of dysesthesia, allodynia or hyperpathia response. Neurologic: Cranial nerves grossly intact. Ambulatory function slightly guarded. Discharge Data Consultations 06/02/22 10:58 Consult Hospitalist Routine Procedures Performed Operation Date: 06/02/22 07:30 Actual Procedures p Implantation of Drug Administration Pain Pump and Catheter Placement(Left) - Arturo Jorge MD, [facility] Hospital Course (1) Lumbar post-laminectomy syndrome: (2) History of lumbar surgery: Plan 1. Dry dressing changes daily. 2. Continue to wear abdominal binder 21/12 x 4 weeks, then only during activity for an additional 4 weeks. 3. No dosage changes to the intrathecal pump were made today. 4. Take MS IR 15mg TID PRN breakthrough pain. She does have Narcan at home in case of opioid overdose. She is aware of signs of overdose. 5. Follow up appointments scheduled on 06/10/2022 at 1030 and 06/17/2022 at 1315.
[2022-06-03] MEDS: amLODIPine BESYLATE 5 MG TAB PO SCH (09:08)
[2022-06-03] MEDS: DOCUSATE SODIUM 100 MG CAP PO SCH (09:13)
[2022-06-03 10:28] LABS: Estimated Average Glucose 128 mg/dl; Hemoglobin A1C 6.1 % (4.5-5.6)
[2022-06-03] MEDS: MoRPHine SULFATE IR 15 MG TAB (IMMEDIATE RELEASE) PO PRN (14:37)
== END 2022-06-03 15:27 | disposition home or self-care (01) ==
LOC: PACUINP 05:48 → ASU 05:48 → 2S 15:55